=== PATIENT | male | born 1985 | race Caucasian/White ===

== ENCOUNTER 2022-11-30 12:30 | Emergency (ER) | payer OTHER, SELFPAY ==
[2022-11-30 12:31] VITALS: BP 137/87; PULSE 80; RESP 18; TEMP 37.1; O2SAT 99; BMI 20.5
--- NOTE | 2022-11-30 12:44 | VDLE_ITS ---
Reason For Study: swelling RIGHT CFV is compressible, spontaneous, phasic, competent and demonstrates normal augmentation. FV is compressible, spontaneous, phasic, competent and demonstrates normal augmentation. POP V is compressible, spontaneous, phasic, competent and demonstrates normal augmentation. T/P Trunk is compressible. PTV is compressible. Soleus V and Peroneal V are both dilated and noncompressible. GSV from the proximal thigh to the mid calf is dilated and noncompressible. Varicose veins from the proximal thigh to mid calf are dilated and noncompressible. Procedure This is a venous duplex using B-mode, color flow and spectral Doppler. Exam performed portable in ED. The exam was diagnostic. A preliminary report was called and/or faxed to Dr. Kim. VL/Venous Duplex US, Unilateral Interpretation Summary Deep venous thrombosis right soleus and peroneal veins. Superficial thrombophlebitis right great saphenous vein from the proximal thigh to the mid calf Superficial thrombophlebitis varicose veins of the proximal thigh to the mid ca lf Ordering Physician: Maximiliano Kim Performed By: Gabo Joyce RVT
--- NOTE | 2022-11-30 12:44 | ED.VIS.LOWEX ---
HPI History of Present Illness Chief Complaint: Lower Extremity Injury Detail of Chief Complaint: Left leg pain and varicosities Informant: patient Narrative Narrative: Patient presents the emergency department with concern for DVT. Patient was seen in urgent care and referred to the emergency department today. Patient noticed that 6 or 7 days ago that he developed some discomfort to some of the veins of his right leg from the knee to the thigh. Denies chest pain or shortness of breath. No history of PE or DVT. He denies recent travel or surgery. Patient is a smoker. PFSH PFSH Medical History no medical history Home Medications apixaban 5 mg tablet (Eliquis) 5 mg PO BID #74 tabs 11/30/22 [Rx Last Taken Unknown] Allergy/AdvReac Type Severity Reaction Status Date / Time No Known Allergies Allergy Verified 11/30/22 12:32 Surgical History no surgical history Social History Smoking Status: Current every day smoker tobacco type: cigarettes ROS ROS ED Review of Systems ROS Unobtainable: other Constitutional Constitutional ED: Reports lethargy; Denies chills, fever(s), sweats or weight loss Eyes Eyes: Denies blurry vision, change in vision or diplopia ENT ENT ED: Denies rhinorrhea or sore throat Cardiovascular Cardiovascular: Denies chest pain, orthopnea or racing heartbeat Respiratory/Chest Respiratory/Chest: Denies cough, dyspnea, dyspnea on exertion, orthopnea or sputum Gastrointestinal Gastrointestinal: Denies abdominal pain, diarrhea, nausea or vomiting Genitourinary Genitourinary ED: Denies dysuria, hematuria or urinary frequency Musculoskeletal Musculoskeletal: Reports other Details: Right leg pain and swelling ; Denies arthralgias, back pain, myalgias or neck pain Integumentary Denies abscess, Abrasions or rash Neurologic Neurologic: Denies headache(s) or weakness Psychiatric Psychiatric: Denies anxiety, depression or suicidal thoughts Endocrine Endocrinology: Denies polydipsia, polyphagia or polyuria Hematologic/Lymphatic Hematologic/Lymphatic: Denies easy bleeding, easy bruising or lymphadenopathy Allergic/Immunologic Allergic/Immunologic ED: Denies mouth swelling, tongue swelling or urticaria EXAM Physical Exam Const Vital Signs: 11/30/22 12:31 Temperature 98.8 F Temperature Source Temporal Pulse Rate 80 Respiratory Rate 18 Blood Pressure 137/87 H Blood Pressure Mean 103 Pulse Ox 99 Oxygen Delivery Method Room Air Positive well nourished and well developed General Appearance ED: well developed and NAD HEENT Reports TM's clear and moist mucous membranes normocephalic and atraumatic; Negative for trauma or tenderness Tympanic Membrane ED: Yes TM's clear Eyes PERRL and EOMs intact bilaterally General Eye ED: Negative for pale conjunctiva or scleral icterus Neck no lymphadenopathy, supple and no JVD General: Negative for tenderness Chest Wall inspection of chest normal and palpation of chest normal Chest: Negative for tenderness Resp normal respiratory effort and clear to auscultation bilaterally Effort and Inspection: Negative for respiratory distress or pain with movement Auscultation: Negative for rhonchi, wheezes or diminished lung sounds Cardio regular rate, regular rhythm, S1 normal heart sound, S2 normal heart sound and no murmurs Peripheral Pulses: pulses 2+ throughout GI normal to inspection, nondistended, normoactive bowel sounds, soft to palpation, non-tender, non-distended and no masses Back/Spine no CVA tenderness and no thoracic nor lumbar tenderness Extremity Extremity Narrative: Right leg-patient does have what I suspect is likely a superficial varicosity over the medial aspect of the right thigh extending from the popliteal region. There are some faint erythema. Vein is firm and slightly tender to palpation. No significant leg edema. Neurovascular intact distally. General Extremety ED: Negative for edema General Extremity: Negative for edema Neuro oriented x3, CN's II-XII intact bilaterally, no sensory deficits noted and gait normal Sensorium / Orientation: awake, alert, oriented to person, oriented to place and oriented to time Motor Exam: strength 5/5 throughout and strength abnormal Psych mental status grossly normal Skin no rashes or lesions noted and no wounds MDM MDM MDM Narrative Medical decision making narrative: Had a venous Doppler of the right lower extremity that showed DVT below the knee of the soleus vein and involving the peroneal vein. Patient also had superficial phlebitis of the greater saphenous vein. Case discussed with vascular surgeon Dr. Salmeron who recommended anticoagulation and follow-up with his office. Patient will be started on Eliquis. Patient advised to return for bleeding issues or any trauma to his head. Patient to return if chest pain or shortness of breath or condition should worsen anyway. Discharge Plan Triage Chief Complaint: Lower Extremity Injury ED Provider: Maximiliano Kim Dx/Rx/DC Orders Clinical Impression: Superficial thrombophlebitis, DVT of lower limb, acute Instructions: DVT Dc, ED Thrombophlebitis, Superficial Prescriptions: New Eliquis 5 mg tablet 5 mg PO BID Qty: 74 0RF Rx Instructions: 10 mg twice a day for the first week. Then 5 mg twice a day. Primary Care Provider: Care Physician,No Primary Referrals: Care Physician,No Primary [Primary Care Provider] - Disposition Disposition: Home, Self Care
--- NOTE | 2022-11-30 13:08 | CM.ED ---
Social Work Note Referral Source: Case Find Referral Reason: no PCP/ insurance SW met with patient and introduced herself and role as [facility] Elevator Troubleshooter. Patient was sitting up in hospital bed and agreeable to speak with SW. SW inquired about patient's interest in Medicaid application, patient was agreeable stating he needed assistance with getting insurance. SW reviewed how to apply as well as [employer] and [facility] resources. SW explained the case management director at [facility] could also assist patient with Medicaid application or additional resources. Patient was receptive towards resources and reports no other needs. SW remains available if needs arise. Zenaida Birch WIRE WORKER, CANDACE
[2022-11-30] MEDS: APIXABAN 5 MG TABLET 10 MG PO (13:45)
== END 2022-11-30 13:49 | disposition home or self-care (01) ==
PROVIDERS: Emergency Provider Emergency Medicine; Visit Provider Emergency Medicine
DX: I80.02 Phlebitis and thrombophlebitis of superficial vessels of left lower extremity (principal); F17.210 Nicotine dependence, cigarettes, uncomplicated
CPT/HCPCS: 93971; 99283

== ENCOUNTER → 2023-07-06 | Outpatient (CLI) | payer SELFPAY ==
[2023-07-06 12:35] LABS: Absolute Lymphocyte Count 0.97 X10^3/uL (0.83-4.51); Absolute Neutrophil Count 4.8 X10^3/uL (2.0-7.7); Basophil# 0.07 X10^3/uL; Basophil% 1.1 % (0-1); Eosinophil# 0.07 X10^3/uL; Eosinophils% 1.1 % (0-5); Hematocrit 48.3 % (40-54); Hemoglobin 16.3 g/dL (13.0-16.5); Lymphocyte # 0.97 X10^3/ul (0.83-4.51); Lymphocyte % 15.1 % (19-41); Mean Corp Hgb Conc 33.7 g/dL (32-36); Mean Corpuscular Hgb 31.8 pg (27.0-32.0); Mean Corpuscular Volume 94.2 fL (80-94); Mean Platelet Vol. 10.4 fl (6.2-12.0); Monocyte# 0.48 X10^3/uL; Monocyte% 7.5 % (0-10); NRBC Flagged by Analyzer 0 % (0-5); Neutrophil # 4.81 X10^3/uL (2.7-7.7); Neutrophil % 74.9 % (47-70); Platelet Count 176 K/mm3 (150-450); RBC Distribution Width CV 12.6 % (11.6-14.6); RBC Distribution Width SD 43.2 fl (35.1-43.9); Red Blood Count 5.13 M/mm3 (4.6-6.2); White Blood Count 6.4 K/mm3 (4.4-11.0)
[2023-07-06 12:55] LABS: AST(SGOT) 16 U/L (15-37); Alanine Aminotransfer ALT/SGPT 20 U/L (16-61); Albumin, Serum 3.7 g/dL (3.2-5.0); Alkaline Phosphatase 68 U/L (45-117); Anion Gap 8 (5-15); BUN 11 mg/dL (7-18); Calcium,Total 8.9 mg/dL (8.5-10.1); Chloride 104 mmol/L (98-107); Cholesterol 98 mg/dL (200); Creatinine, Serum 0.73 mg/dL (0.70-1.30); EST Glomerular Filtration Rate 128 mL/min (>60); Est Glom Filt Rate - Afr Amer 155 mL/min (>60); Globulin 3.8 g/dL (2.2-4.2); Glucose 95 mg/dL (74-106); High Density Lipoprotein 66 mg/dL; Potassium 4.4 mmol/L (3.5-5.1); Protein, Total 7.5 g/dL (6.4-8.2); Sodium Level 139 mmol/L (136-145); Triglycerides 42 mg/dL; Very Low Density Lipoprotein 8 mg/dL (5-40)
[2023-07-06 13:00] LABS: Partial Thromboplast Time 41.6 Seconds (24.1-36.2)
[2023-07-11 10:07] LABS: Factor VIII Activity 113 % (56-140); Protein C Antigen 66 % (60-150); Protein S, Free 105 % (61-136); Protein S, Total 69 % (60-150)
== END | disposition home or self-care (01) ==
LOC: BIMLAB 09:42
PROVIDERS: PCP Internal Medicine; Referring Provider Internal Medicine; Visit Provider Internal Medicine
DX: Z00.00 Encounter for general adult medical examination without abnormal findings (principal); I82.409 Acute embolism and thrombosis of unspecified deep veins of unspecified lower extremity; Z13.6 Encounter for screening for cardiovascular disorders
CPT/HCPCS: 36415; 80053; 80061; 85025; 85240; 85245; 85302; 85305; 85306; 85730

== ENCOUNTER → 2023-11-30 | Outpatient (CLI) | payer MEDICAID, SELFPAY ==
--- NOTE | 2023-11-30 14:33 | VDLE_ITS ---
Reason For Study: Right leg pain RIGHT LEFT GSV is normal. CFV is compressible, spontaneous, phasic, Acute deep vein thrombosis is noted in the competent, and demonstrates normal right CFV distal, FV, ProfundaV, PopV, T/P augmentation. trunk, and PTV. It is NONCOMPRESSIBLE. RT PerV is compressible. Procedure This is a venous duplex using B-mode, color flow and spectral Doppler. Exam performed in department. A preliminary report was called and/or faxed to Kendy DUFF. VL/Venous Duplex US, Unilateral Interpretation Summary Acute on chronic deep vein thrombosis is noted in the right common femoral vein , femoral vein, profunda vein, popliteal vein, tibioperoneal, posterior tibial vein Ordering Physician: Kendy Henning Referring Physician: Kimberlee Butler Performed By: Sarina Cohen RVT
== END | disposition home or self-care (01) ==
PROVIDERS: PCP Internal Medicine; Referring Provider Physician Assistant; Visit Provider Physician Assistant
DX: M79.604 Pain in right leg (principal)
CPT/HCPCS: 93971

== ENCOUNTER 2024-03-01 07:26 | Day surgery (SDC) | payer MEDICAID, SELFPAY ==
[2024-02-29 07:45] VITALS: BMI 19.6
[2024-03-01 07:47] LABS: Hemoglobin 16.1 g/dL (13.0-16.5); Mean Corp Hgb Conc 34.3 g/dL (32-36); Mean Corpuscular Hgb 31.3 pg (27.0-32.0); Mean Corpuscular Volume 91.4 fL (80-94); Mean Platelet Vol. 9.8 fl (6.2-12.0); Platelet Count 314 K/mm3 (150-450); RBC Distribution Width CV 12.9 % (11.6-14.6); RBC Distribution Width SD 43.8 fl (35.1-43.9); Red Blood Count 5.14 M/mm3 (4.6-6.2); White Blood Count 10.1 K/mm3 (4.4-11.0)
[2024-03-01 07:55] LABS: Anion Gap 4 (5-15); BUN 12 mg/dL (7-18); BUN/Creat Ratio 14.6 RATIO (10-20); Calcium,Total 9.2 mg/dL (8.5-10.1); Chloride 107 mmol/L (98-107); Creatinine, Serum 0.82 mg/dL (0.70-1.30); EST Glomerular Filtration Rate 112 mL/min (>60); Est Glom Filt Rate - Afr Amer 136 mL/min (>60); Estimated Creatinine Clearance 115.86 ml/min; Glucose 103 mg/dL (74-106); Potassium 3.9 mmol/L (3.5-5.1); Sodium Level 139 mmol/L (136-145)
--- NOTE | 2024-03-01 10:17 | OP.PCM_ITS ---
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 He has no significant personal or family history of known hypercoagulable conditions or early cancers. He presents now for venogram to assess for possible anatomic obstruction contributing to his thrombotic events. Description of procedure: Upon obtaining informed consent and verification correct patient procedure and site patient was taken to the [facility] where he was positioned prepped and draped in usual sterile fashion. Time was performed and conscious sedation administered Versed and fentanyl. Skin overlying the right common femoral vein was anesthetized 1% lidocaine the vessel accessed and ultrasound guidance with micropuncture needle wire. This was exchanged out for micropuncture sheath routine injection ilio caval venogram was performed which revealed satisfactory position with no extravasation dissection. Through the micropuncture sheath a Bentson wire is advanced and the micropuncture sheath exchanged for an 8 [place] sheath. Through the 8 [place] sheath intravascular sound probe was advanced and recorded pullback performed of the IVC, right common iliac vein, right external iliac vein. This revealed no significant compression or obstruction of the right iliac veins. Next skin overlying the left common femoral vein anesthetized 1% lidocaine the vessel accessed with micropuncture needle wire. This then exchanged for micropuncture sheath through which injection ilio caval venogram support which revealed satisfactory positioning with no extravasation dissection. This also revealed significantly widened mid common iliac vein with decreased opacification at the superior aspect of the vessel suggesting potential compression. Through the micropuncture sheath Bentson wire advanced the micropuncture sheath exchanged out for a 10 [place] sheath. Through the 10 [place] sheath the intravascular ultrasound probe was advanced and recorded pullback performed of the IVC, left common iliac vein, left external iliac vein. This revealed 58% compression of the proximal left common iliac vein up to the confluence. The patient had no prior left lower extremity thrombotic events or symptoms of venous congestion so it was not felt that this was appropriate for treatment. Wires and catheters then withdrawn, a silk suture pursestring placed at the access site and manual pressure held until hemostasis was obtained. Patient was then taken to recovery room for bedrest prior to discharge to home.
== END 2024-03-01 11:45 | disposition home or self-care (01) ==
PROVIDERS: PCP Internal Medicine; Referring Provider Surgery Trauma Surgery; Visit Provider Surgery Trauma Surgery
DX: I82.411 Acute embolism and thrombosis of right femoral vein (principal); Z79.82 Long term (current) use of aspirin; Z79.01 Long term (current) use of anticoagulants; Z86.718 Personal history of other venous thrombosis and embolism; F17.210 Nicotine dependence, cigarettes, uncomplicated; I87.1 Compression of vein
CPT/HCPCS: 36010; 36415; 37252; 37253; 75825; 76937; 80048; 85027; 99152; 99153; C1753; C1769; C1894; J7040; Q9967

== ENCOUNTER → 2024-07-02 | Outpatient (CLI) | payer MEDICAID, SELFPAY ==
[2024-07-02 10:46] LABS: Erythrocyte Sedimentation Rate 2 mm/hr (0-20)
[2024-07-03 15:09] LABS: ANTINUCLEAR ANTIBODIES DIRECT Negative (Negative)
[2024-07-10 17:07] LABS: Anti-Cardiolipin Ab, IgA, Qn < 9 APL U/mL (0-11); Anti-Cardiolipin Ab, IgG, Qn 12 GPL U/mL (0-14); Anti-Cardiolipin Ab, IgM, Qn < 9 MPL U/mL (0-12); Anti-Thrombin 3 AG, Immunol 70 % (72-124); Antithrombin 3 Function 113 % (75-135); Complement C3 104 mg/dL (82-167); Complement CH50 54 U/mL (>41); Dilute Prothrombin Time (dPT) 37.4 sec (0.0-47.6); Dilute Russell Viper Venom 33.5 sec (0.0-47.0); Hexagonal Phase Phospholipid 2 16 sec (0-11); Interpretation Comment: (.); PTT-LA 46.5 sec (0.0-43.5); PTT-LA Mix 45.1 sec (0.0-40.5); Protein C, Functional 100 % (73-180); Protein S, Free 91 % (61-136); Protein S, Funtional 48 % (63-140); Protein S, Total 60 % (60-150); Thrombin Time 16.1 sec (0.0-23.0); dPT Confirm Ratio 1.19 Ratio (0.00-1.34)
== END | disposition home or self-care (01) ==
LOC: LAB 10:16
PROVIDERS: PCP Internal Medicine; Referring Provider Physician Assistant; Visit Provider Physician Assistant
DX: I82.411 Acute embolism and thrombosis of right femoral vein (principal)
CPT/HCPCS: 36415; 81240; 81241; 85300; 85301; 85303; 85305; 85306; 85652; 86038; 86147; 86160; 86162; 86225; 86235

== ENCOUNTER → 2024-07-30 | Outpatient (CLI) | payer MEDICAID, SELFPAY ==
--- NOTE | 2024-07-30 09:44 | VDLE_ITS ---
Reason For Study: HX DVT RIGHT LEFT CFV is compressible, spontaneous, phasic, FV is compressible, spontaneous, phasic, competent and demonstrates normal competent and demonstrates normal augmentation. augmentation. FV is PARTIALLY COMPRESSIBLE with intralumnal echoes noted. Finding consistent with CHRONIC DVT. Reflux greater than 1.0 second is noted with augmentation in both FV duplicators. POP V is compressible, spontaneous, phasic and demonstrates reflux greater than 1.0 second with augmentation. T/P Trunk is PARTIALLY COMPRESSIBLE with intralumnal echoes noted. Finding consistent with CHRONIC DVT. PTV is compressible. RT PerV is compressible. SFJ is INCOMPETENT and measures 0.74 cm. GSV proximal thigh measures 0.33 x 0.37 cm. GSV at knee measures 0.29 x 0.30 cm. GSV INCOMPETENT throughout for greater than 0.5 seconds. SSV at junction is competent and measures 0.31 x 0.34 cm. SSV mid calf is competent and measures 0.31 cm. ASV mid thigh is INCOMPETENT for greater than 0.5 seconds and measures 0.41 x 0.47 cm. Procedure This is a venous duplex using B-mode, color flow and spectral Doppler. Exam performed in department. The exam was diagnostic. VL/Venous Duplex US, Unilateral Interpretation Summary Chronic deep vein thrombosis is noted in the right femoral vein, tibioperoneal trunk vein. Positive for reflux in duplicate femoral vein, saphenofemoral junction, great s aphenous vein, accessory saphenous vein in thigh. Ordering Physician: Kendy Henning Referring Physician: Kimberlee Butler Performed By: Ghassan Gonzales RVT
== END | disposition home or self-care (01) ==
LOC: CVS 09:40
PROVIDERS: PCP Internal Medicine; Referring Provider Physician Assistant; Visit Provider Physician Assistant
DX: I87.2 Venous insufficiency (chronic) (peripheral) (principal)
CPT/HCPCS: 93971

== ENCOUNTER → 2024-10-22 | Outpatient (CLI) | payer MEDICAID, SELFPAY ==
[2024-10-23 19:07] LABS: Dilute Russell Viper Venom 49.8 sec (0.0-47.0); Dilute Russell Viper Venom Mix 40.3 sec (0.0-40.4); Hexagonal Phase Phospholipid 2 30 sec (0-11); Interpretation Comment: (.); PTT-LA 65.9 sec (0.0-43.5); PTT-LA Mix 60.8 sec (0.0-40.5); Protein S, Free 94 % (61-136); Protein S, Funtional 80 % (63-140); Protein S, Total 68 % (60-150); Thrombin Time 15.6 sec (0.0-23.0); dPT Confirm Ratio 1.44 Ratio (0.00-1.34)
== END | disposition home or self-care (01) ==
LOC: LAB 09:42
PROVIDERS: PCP Internal Medicine; Referring Provider Physician Assistant; Visit Provider Physician Assistant
DX: I82.411 Acute embolism and thrombosis of right femoral vein (principal)
CPT/HCPCS: 36415; 85305; 85306

== ENCOUNTER → 2025-04-23 | Outpatient (CLI) | payer MEDICAID, SELFPAY ==
--- NOTE | 2025-04-23 10:57 | VDLE_ITS ---
Reason For Study Reason For Study: HX RLE DVT RIGHT LEFT GSV is PARTIALLY COMPRESSIBLE at mid thigh but GSV is normal. appears compressible throughout the remainder of the CFV is compressible, spontaneous, phasic, competent, vessel. and demonstrates normal augmentation. FV is compressible, spontaneous, phasic, competent CFV is compressible, phasic, and INCOMPETENT for and demonstrates normal augmentation. greater than 1.0 second. POP V is compressible, spontaneous, phasic, competent and demonstrates normal augmentation. FV is PARTIALLY COMPRESSIBLE with mixed intraluminal T/P Trunk is compressible. echoes and continuous flow. Chronic DVT at prox and PTV is compressible. mid - Possible Acute on Chronic DVT at distal vessel. LT PerV is compressible. Deep Femoral Vein is Partially compressible with web like intraluminal echoes POP V Acute deep vein thrombosis is noted. The vessel appears dilated and NONCOMPRESSIBLE with diminished continuous flow. T/P Trunk is Partially compressible with web like intraluminal echoes Gastrocnemius Vein is Partially compressible with web like intraluminal echoes PTV Acute deep vein thrombosis is noted. The vessel appears dilated and NONCOMPRESSIBLE at proximal portion Leonardo Vein is compressible. Procedure This is a venous duplex using B-mode, color flow and spectral Doppler. Exam performed in department. The exam was diagnostic. A preliminary report was called and/or faxed to Katty @ Dr. Toth's office. VL/Venous Duplex US - Taco Extrem Interpretation Summary Acute deep vein thrombosis noted in the right femoral vein, popliteal vein, pos terior tibial vein. Chronic deep vein thrombosis noted in the right femoral vein, profunda femoral vein, gastrocnemius vein. Chronic superficial vein thrombosis noted in the right great saphenous vein. Deep veins of the left lower extremity are patent and compressible segmentally. There is no evidence of left lower extremity deep vein thrombosis. The left great saphenous vein appears patent an d compressible segmentally. Ordering Physician: Derek Toth Referring Physician: [place], Kimberlee Performed By: Ghassan Gonzales RVT
--- OUTSIDE RECORDS SUMMARY | 2025-04-23 19:59 | XMS RPT_ITS | CCD ---
Author Organization [facility] CliniSyut Care Team Providers Care Job Hand Name Role Phone Care Physician, No Primary Primary Care Provider Unavailable Care Physician, No Primary Referring Provider Un available Dr. Cliff Butler Attending Provider [phone] CARLEE ROBERTS Attending Unavailable CLIFF BUTLER G Primary Care Unavailable Dr. Cliff Butler Primary Care Provider Dr. Cliff Butler Referring Provider [phone] OMEGA Henning Attending Provider [phone] Ariel Salmeron Attending Provider [phone] Cliff Butler MD Primary Care Provider [phone] Kendy Kirkpatrick Attending Provider [phone] Kendy Kirkpatrick Referring Provider [phone] Ariel Salmeron MD Attending Provider Marks, Cliff Primary Care Unavailable Henning, Kendy Referring Unavailable Henning, Kendy Attending Unavailable Henning, Kendy Attending Unavailable Henning, Kendy Referring Unavailable Luke, Cliff Primary Care Unavailable Marks, Cliff Primary Care Unavailable Prah, Derek Attending Unavailable Prah, Derek Referring Unavailable Marks, Cliff Primary Care Unavailable Prah, Derek Attending Unavailable Henning, Kendy Referring Unavailable Luke, Cliff Primary Care Unavailable Henning, Kendy Referring Unavailable Ariel Salmeron Attending Unavailable Luke, Cliff Referring Unavailable Marks, Cliff Primary Care Unavailable Prah, Derek Attending Unavailable Henning, Kendy Attending Unavailable Luke, Cliff Referring Unavailable Marks, Cliff Primary Care Unavailable Luke, Cliff Primary Care Unavailable Henning, Kendy Referring Unavailable Henning, Kendy Attending Unavailable Medications Current Medications Medication Drug Class(es) Dates Sig (Normalized) Sig (Original) aspirin 81 mg delayed release oral tablet (2 sources) Platelet Aggregation Inhibitor, Nonsteroidal Anti-inflammatory Drug Start: 11-30-2023 take 1 tablet by mouth once daily Aspirin 81 mg tablet,delayed release (DR/EC) Active 81 mg PO DAILY November 30, 2023 12:00am rivaroxaban 10 mg oral tablet (3 sources) Factor Xa Inhibitor Start: 07-17-2024 take 1 tablet by mouth once Rivaroxaban (Xarelto) 10 mg tablet Active 10 mg PO ONCE July 17, 2024 1:00am Start: 11-30-2023 End: 07-17-2024 take 1 tablet by mouth once daily at dinner Rivaroxaban (Xarelto) 20 mg tablet Discontinued 20 mg PO DAILY November 30, 2023 12:00am July 17, 2024 5:27pm must administer with evening meal Completed/Discontinued Medications Medication Drug Class(es) Dates Sig (Normalized) Sig (Original) apixaban 5 mg oral tablet (4 sources) Factor Xa Inhibitor Start: 11-30-2022 End: 07-06-2023 take 2 tablets by mouth twice daily, then take 1 tablet by mouth twice daily Apixaban (Eliquis) 5 mg tablet Discontinued 5 mg PO TWICE A DAY November 30, 2022 12:00am July 06, 2023 9:47am 10 mg twice a day for the first week. Then 5 mg twice a day. clopidogrel 75 mg oral tablet (1 source) P2Y12 Platelet Inhibitor Start: 06-27-2024 End: 07-17-2024 take 1 tablet by mouth once daily Clopidogrel (Plavix) 75 mg tablet Discontinued 75 mg PO DAILY June 27, 2024 1:00am July 17, 2024 5:29pm To start after discontinuing Xarelto Problems Active Problems Problem Classification Problem Date Documented Date Episodic/Chronic Administrative/social admission (1 source) Persons encountering health services in other specified circumstances; Translations: [Other reasons for seeking consultation] 07-06-2023 Episodic Coagulation and hemorrhagic disorders (1 source) Other primary thrombophilia; 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-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 Immunizations and screening for infectious disease (1 source) Raised antibody titer; Translations: [Raised antibody titer] Onset: 03-25-2025 Episodic Other connective tissue disease (2 sources) Pain in right lower limb; Translations: [Pain in right leg] 11-30-2023 Episodic Other diseases of veins and lymphatics (2 sources) Vascular insufficiency; Translations: [Venous insufficiency (chronic) (peripheral)] 11-30-2023 Episodic Other screening for suspected conditions (not mental disorders or infectious disease) (1 source) Encounter for screening for cardiovascular disorders; Translations: [Screening for other and unspecified cardiovascular conditions] 07-06-2023 Episodic Substance-related disorders (1 source) Nicotine dependence, cigarettes, uncomplicated; Translations: [Tobacco use disorder] 07-06-2023 Chronic Syncope (1 source) Syncope and collapse; Translations: [Near syncope] Onset: 07-24-2023 Episodic Past or Other Problems Problem Classification Problem Date Documented Da te Episodic/Chronic Other diseases of veins and lymphatics (1 source) Venous insufficiency (chronic) (peripheral); Translations: [Venous insufficiency (chronic) (peripheral)] Onset: Episodic Phlebitis; thrombophlebitis and thromboembolism (14 sources) Superficial thrombophlebitis; Translations: [Phlebitis and thrombophlebitis of unspecified site] Onset: 5 11-30-2022 Episodic Results Test Name Value Interpretation Reference Range Facility CBC W/Diff, Automatedon Absolute Lymph 1.10 X10 3/uL Normal 0.83-4.51 [facility] Comment on above: Performed By: #### L 300.4310, L300.3900, L100.0100, L101.9900, L504.2610 ####[facility] [address] [place], [address] Absolute Neut 6.5 X10 3/uL Normal 2.0-7.7 [facility] Comment on above: Performed By: #### L 300.4310, L300.3900, L100.0100, L101.9900, L504.2610 ####[facility] [address] [place], [address] Basophils/100 WBC (Bld) 1.1 % High 0-1 [facility] Comment on above: Performed By: #### L 300.4310, L300.3900, L100.0100, L101.9900, L504.2610 ####[facility] [address] [place], [address] Eosinophils/100 WBC (Bld) 0.9 % Normal 0-5 [facility] Comment on above: Performed By: #### L 300.4310, L300.3900, L100.0100, L101.9900, L504.2610 ####[facility] [address] [place], [address] Erythrocyte distribution width (RBC) [Ratio] 13.2 % Normal 11.6-14.6 [facility] Comment on above: Performed By: #### L 300.4310, L300.3900, L100.0100, L101.9900, L504.2610 ####[facility] [address] [place], [address] Hematocrit (Bld) [Volume fraction] 46.6 % Normal 40-54 [facility] Comment on above: Performed By: #### L 300.4310, L300.3900, L100.0100, L101.9900, L504.2610 ####[facility] [address] [place], [address] Hemoglobin (Bld) [Mass/Vol] 15.9 g/dL Normal 13.0-16.5 [facility] Comment on above: Performed By: #### L 300.4310, L300.3900, L100.0100, L101.9900, L504.2610 ####[facility] [address] [place], [address] IG% 0.500 Normal 0.0-0.9 [facility] Comment on above: Result Comment: IG% - Immature Granulocytes (promyelocytes, myelocytes and metamyelocytes) > 1% indicates that a LEFT SHIFT is Present. Performed By: #### L 300.4310, L300.3900, L100.0100, L101.9900, L504.2610 ####[facility] [address] [place], [address] Lymphocytes/100 WBC (Bld) 12.9 % Low 19-41 [facility] Comment on above: Performed By: #### L 300.4310, L300.3900, L100.0100, L101.9900, L504.2610 ####[facility] [address] [place], [address] MCH (RBC) [Entitic mass] 32.0 pg Normal 27.0-32.0 [facility] Comment on above: Performed By: #### L 300.4310, L300.3900, L100.0100, L101.9900, L504.2610 ####[facility] [address] [place], [address] MCHC (RBC) [Mass/Vol] 34.1 g/dL Normal 32-36 [facility] Comment on above: Performed By: #### L 300.4310, L300.3900, L100.0100, L101.9900, L504.2610 ####[facility] [address] [place], [address] MCV (RBC) [Entitic vol] 93.8 fL Normal 80-94 [facility] Comment on above: Performed By: #### L 300.4310, L300.3900, L100.0100, L101.9900, L504.2610 ####[facility] [address] [place], [address] Monocytes/100 WBC (Bld) 8.8 % Normal 0-10 [facility] Comment on above: Performed By: #### L 300.4310, L300.3900, L100.0100, L101.9900, L504.2610 ####[facility] [address] [place], [address] Neutrophils/100 WBC (Bld) 75.8 % High 47-70 [facility] Comment on above: Performed By: #### L 300.4310, L300.3900, L100.0100, L101.9900, L504.2610 ####[facility] [address] [place], [address] Nucleated RBC (Bld) [#/Vol] 0 10*3/uL Normal 0-5 [facility] Comment on above: Performed By: #### L 300.4310, L300.3900, L100.0100, L101.9900, L504.2610 ####[facility] [address] [place], [address] Platelet mean volume (Bld) [Entitic vol] 10.5 fL Normal 6.2-12.0 [facility] Comment on above: Performed By: #### L 300.4310, L300.3900, L100.0100, L101.9900, L504.2610 ####[facility] [address] [place], [address] Platelets (Bld) [#/Vol] 307 10*3/uL Normal 150-450 [facility] Comment on above: Performed By: #### L 300.4310, L300.3900, L100.0100, L101.9900, L504.2610 ####[facility] [address] [place], [address] RBC (Bld) [#/Vol] 4.97 10*6/uL Normal 4.6-6.[address] [facility] Comment on above: Performed By: #### L 300.4310, L300.3900, L100.0100, L101.9900, L504.2610 ####[facility] [address] [place], [address] RDW SD 44.9 fl High 35.1-43.9 [facility] Comment on above: Performed By: #### L 300.4310, L300.3900, L100.0100, L101.9900, L504.2610 ####[facility] [address] [place], [address] WBC (Bld) [#/Vol] 8.6 10*3/uL Normal 4.4-11.0 [facility] Comment on above: Performed By: #### L 300.4310, L300.3900, L100.0100, L101.9900, L504.2610 ####[facility] [address] [place], [address] Comprehensive Metabolic Prof [facility] 03-26-2025 Albumin [Mass/Vol] 4.3 g/dL Normal 3.5-5.0 [facility] Comment on above: Performed By: #### L 503.0106, L500.4050 #### [facility] [address] [place], [address] Albumin/Globulin [Mass ratio] 1.8 {ratio} Normal 0.9-2.4 [facility] Comment on above: Performed By: #### L 503.0106, L500.4050 #### [facility] [address] [place], [address] ALK PHOS 55 U/L Normal 40-129 [facility] Comment on above: Performed By: #### L 503.0106, L500.4050 #### [facility] [address] [place], [address] ALT [Catalytic activity/Vol] 34 U/L Normal <=46 [facility] Comment on above: Performed By: #### L 503.0106, L500.4050 #### [facility] [address] [place], [address] AST [Catalytic activity/Vol] 44 U/L High <=37 [facility] Comment on above: Performed By: #### L 503.0106, L500.4050 #### [facility] [address] [place], [address] Bilirubin [Mass/Vol] 0.29 mg/dL Normal 0.00-1.30 [facility] Comment on above: Performed By: #### L 503.0106, L500.4050 #### [facility] [address] [place], [address] BUN/CRE 28.3 RATIO High 10-20 [facility] Comment on above: Performed By: #### L 503.0106, L500.4050 #### [facility] [address] [place], [address] Calcium [Mass/Vol] 9.1 mg/dL Normal 7.6-11.0 [facility] Comment on above: Performed By: #### L 503.0106, L500.4050 #### [facility] [address] [place], [address] Chloride [Moles/Vol] 104 mmol/L Normal 98-108 [facility] Comment on above: Performed By: #### L 503.0106, L500.4050 #### [facility] [address] [place], [address] CO2 [Moles/Vol] 23.6 mmol/L Normal 21.0-32.0 [facility] Comment on above: Performed By: #### L 503.0106, L500.4050 #### [facility] [address] [place], [address] Creatinine [Mass/Vol] 0.80 mg/dL Normal 0.70-1.20 [facility] Comment on above: Performed By: #### L 503.0106, L500.4050 #### [facility] [address] [place], [address] ECRCL 116.19 ml/min Normal 50-250 [facility] Comment on above: Performed By: #### L 503.0106, L500.4050 #### [facility] [address] [place], [address] GAP 10 Normal 5-15 [facility] Comment on above: Performed By: #### L 503.0106, L500.4050 #### [facility] [address] [place], [address] GFR/1.73 sq M.predicted among non-blacks MDRD (S/P/Bld) [Vol rate/Area] 117 mL/min/{1.73_m2} Normal >60 [facility] Comment on above: Result Comment: mL/m in/1.73m2 CKD-EPI Creatinine Equation (2020) Performed By: #### L 503.0106, L500.4050 #### [facility] [address] [place], [address] Globulin (S) [Mass/Vol] 2.4 g/dL Normal 2.2-4.2 [facility] Comment on above: Performed By: #### L 503.0106, L500.4050 #### [facility] [address] [place], [address] Glucose [Mass/Vol] 102 mg/dL High 70-99 [facility] Comment on above: Performed By: #### L 503.0106, L500.4050 #### [facility] [address] [place], [address] Potassium [Moles/Vol] 4.1 mmol/L Normal 3.3-5.1 [facility] Comment on above: Performed By: #### L 503.0106, L500.4050 #### [facility] [address] [place], [address] Sodium [Moles/Vol] 137 mmol/L Normal 133-145 [facility] Comment on above: Performed By: #### L 503.0106, L500.4050 #### [facility] [address] [place], [address] T PROT 6.7 g/dL Normal 5.9-8.4 [facility] Comment on above: Performed By: #### L 503.0106, L500.4050 #### [facility] [address] [place], [address] Urea nitrogen [Mass/Vol] 23 mg/dL High 4-19 [facility] Comment on above: Performed By: #### L 503.0106, L500.4050 #### [facility] [address] [place], [address] Erythrocyte Sed Rateon 03-26 SED RATE 7 mm/hr Normal 0-20 [facility] Comment on above: Performed By: #### L 300.4310, L300.3900, L100.0100, L101.9900, L504.2610 ####[facility] [address] [place], [address] LDHon 03-26-2025 LDH 183 U/L Normal 87-241 [facility] Comment on above: Order Comment: 1 Performed By: #### L 300.4310, L300.3900, L100.0100, L101.9900, L504.2610 ####[facility] [address] [place], [address] Partial Thromboplast Timeon 03-26-2025 aPTT Coag (Bld) [Time] 39.4 s High 24.1-36.2 [facility] Comment on above: Performed By: #### L 300.4310, L300.3900, L100.0100, L101.9900, L504.2610 ####[facility] [address] [place], [address] Prothrombin Time w/INRon INR Coag (PPP) [Relative time] 0.9 {INR} Normal [facility] Comment on above: Performed By: #### L 300.4310, L300.3900, L100.0100, L101.9900, L504.2610 ####[facility] [address] [place], [address] PT Coag (PPP) [Time] 12.7 s Normal 11.7-14.9 [facility] Comment on above: Performed By: #### L 300.4310, L300.3900, L100.0100, L101.9900, L504.2610 ####[facility] [address] [place], [address] Vitamin B12on 03-26-2025 Cobalamin (Vitamin B12) [Mass/Vol] 369 pg/mL Normal 180-914 [facility] Comment on above: Performed By: #### L 503.0106, L500.4050 #### [facility] [address] [place], [address] Oncology Visit Reporton Oncology Visit Report [facility] [place] [facility] [address] [place] [address] OFFICE VISIT Date of Service: 12/24/24 0857 MR#: [id number] Acct: [id number] Name: LAURO ZARAGOZA Rep #: [id number] : 1985 From: Derek Toth MD Age/Sex: 39/M Location: [facility] Status: Signed HPI Subjective Date of Service 12/24/24 Chief Complaint F/u for Lupus anticoagulant. History of Present Illness 39y.o.man was diagnosed with Distal DVT on 11/30/2022 which was unprovoked. He was anticoagulated with Eliquis for some 6 months. He developed right leg swelling and pain in November 2023, Doppler showed acute on chronic DVT in the right common femoral vein, femoral vein profunda vein popliteal vein, tibial peroneal vein and posterior tibial vein. He was started on Xarelto. 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 He is currently on prophylactic dose of Xarelto 10 mg daily. He had another thrombotic risk profile which was abnormal and referred for further evaluation. He had bloow work and comes for follow up. Feels well. 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 pets and animals: Yes (1) pets and animals: dog(s) history of recent travel: No sexually active: Yes Smoking Status: Former smoker Electronic Cigarette Use: not used how long ago did patient quit smokin months quit status: considering quitting alcohol intake: current alcohol intake frequency: a few times a week Alcohol type: beer substance use type: marijuana caffeine: Yes (1-2) Type: coffee frequency: 1-2 times per week seatbelt use: always do you feel safe at home: Yes Intake Vital Signs 12/10/24 15:14 12/24/24 09:01 Height 6 ft 6 ft Weight: 64.977 kg BMI 19.4 BP 106/69 Blood Pressure Location Lt brachial Position Sitting Respiration 18 Pulse 78 Pulse Source Monitor Temp 98.4 F Temperature Source Temporal Artery Pulse Oximetry (%) 98 Oxygen Delivery Method room air Intake Is patient in pain?: No Allergies No Known Allergies Allergy (Verified 12/24/24 09:01) Medications ???Medication ???Instructions ???Recorded ???Confirmed ???Type aspirin 81 mg tablet,delayed 81 mg PO DAILY 11/30/23 12/24/24 H istory release rivaroxaban 10 mg tablet (Xarelto) 10 mg PO QDAY #30 tabs 11/13/24 12/24/24 Rx Central Venous Access Central Venous Access: No Laboratory Tests 07/02/24 10/22/24 12/17/24 10:19 09:51 09:10 PT 12.2 PT Diluted 48.0 H 40.9 PT Ratio 1.12 APTT 37.8 H Thrombin Time 15.6 16.6 D-Dimer Quant (PE/DVT) < 0.27 L Lupus Anticoag aPTT 65.9 H 63.0 H LA PTT Mix/Correction 60.8 H 46.6 H Dil Bc Viper Venom 49.8 H 43.9 dRVVT Mixing Study 40.3 Hexagonal Phospholipid 30 H 20 H Functional Protein S 80 Free Protein S 94 Total Protein S 68 Factor V Leiden Mutat Comment PAYAM Screen Positive H Anti-Cardiolipin IgG Ab 10 Anti-Cardiolipin IgA Ab < 9 Anti-Cardiolipin IgM Ab < 9 Factor II DNA Analysis Comment Exam Physical Exam Const alert, oriented x3, no apparent distress and average body habitus Coding Level of Care Code Off vis,est,level 3 Exam Problem Focused Diagnoses Lupus anticoagulant positive R76.0 Acute deep vein thrombosis (DVT) of femoral vein of right lower extremity I82.411 DVT location: lower extremity Affected thrombotic vein of extremity: femoral Chronicity: acute Laterality: right PAYAM positive R76.8 Assessment and Plan Assessment and Plan (1) Lupus anticoagulant positive: Status: Chronic Comment: Discussed evaluation of Lupus anti-coagulant evaluation, repeat testing which is trending downwards. Still needs testing again in 3 months Plan: To repeat comprehensive Lupus anticoagulant test in 3 months. (2) Deep vein thrombosis (DVT): Status: Chronic Qualifiers: DVT location: lower extremity Affected thrombotic vein of extremity: femoral Chronicity: acute Laterality: right Qualified Code(s): I82.411 - Acute embolism and thrombosis of right femoral vein Comment: D-dimers was normal on 12/17/2024. Plan: To continue Prophylactic Xarelto 10mg daily till re-testing in about 3 months. Repeat Doppler studies of Lower extremities. (3) PAYAM positive: Status: Acute Comment: No symptoms of Connective tissue disease (more content not included)... Normal [facility] Anticardiolipin IgA,G,Mon ANTICARDIO IgA < 9 Normal 0-11 [facility] Comment on above: Result Comment: Nega tive: <12 Indeterminate: 12 - 20 Low-Med Positive: >20 - 80 High Positive: >80 Performed at: - [facility] [id number] Electroencephalogram Technologist: Mita Mcginnis MD, Phone: [phone] Performed at: - [facility] [id number] Electroencephalogram Technologist: Korey Devine PhD, Phone: [phone] Performed By: #### L 4500.0100, L3100.5475, L3100.8408 ####[facility] [address] [place], [place], [id number] ANTICARDIO IgG 10 GPL U/mL Normal 0-14 [facility] Comment on above: Result Comment: Nega tive: <15 Indeterminate: 15 - 20 Low-Med Positive: >20 - 80 High Positive: >80 Performed By: #### L 4500.0100, L3100.5475, L3100.8408 ####[facility] [address] [place], [address] Anticardio.IgM < 9 Normal 0-12 [facility] Comment on above: Result Comment: Nega tive: <13 Indeterminate: 13 - 20 Low-Med Positive: >20 - 80 High Positive: >80 Performed By: #### L 4500.0100, L3100.5475, L3100.8408 ####[facility] [address] [place], [place], [phone] [id number] 12-19-2024 [facility] Normal . [facility] Comment on above: Order Comment: [id number] SERUM . RT Result Comment: Test Ordered: [id number] Beta-2 Glycoprotein I Ab,G,A,M Beta-2 Glycoprotein I Ab, IgG 11 CB Units of Measure: GPI IgG units Reference Range: 0-20 The reference interval reflects a 3SD or 99th percentile interval, which is thought to represent a potentially clinically significant result in accordance with the International Consensus Statement on the classification criteria for definitive antiphospholipid syndrome (APS). J Thromb Haem 2006;4:295-306. Beta-2 Glycoprotein I Ab, IgA <9 CB Units of Measure: GPI IgA units Reference Range: 0-25 The reference interval reflects a 3SD or 99th percentile interval, which is thought to represent a potentially clinically significant result in accordance with the International Consensus Statement on the classification criteria for definitive antiphospholipid syndrome (APS). J Thromb Haem 2006;4:295-306. Beta-2 Glycoprotein I Ab, IgM <9 CB Units of Measure: GPI IgM units Reference Range: 0-32 The reference interval reflects a 3SD or 99th percentile interval, which is thought to represent a potentially clinically significant result in accordance with the International Consensus Statement on the classification criteria for definitive antiphospholipid syndrome (APS). J Thromb Haem 2006;4:295-306. Performed at: [facility] [address] [id number] Electroencephalogram Technologist: Korey Devine PhD, Phone: [phone] Performed By: #### L 3410.9992 #### [facility] [address] [place], [address] Lupus Anticoagulant Compon 0 12-19-2024 aPTT Coag (Bld) [Time] 63.0 s High 0.0-43.5 [facility] Comment on above: Performed By: #### L 4500.0100, L3100.5475, L3100.8408 ####[facility] [address] [place], [address] aPTT Coag (Bld) [Time] 46.6 s High 0.0-40.5 [facility] Comment on above: Performed By: #### L 4500.0100, L3100.5475, L3100.8408 ####[facility] [address] [place], [address] DILUTE PT (dPT) 40.9 sec Normal 0.0-47.6 [facility] Comment on above: Performed By: #### L 4500.0100, L3100.5475, L3100.8408 ####[facility] [address] [place], [address] dPT Conf. Ratio 1.12 Ratio Normal 0.00-1.34 [facility] Comment on above: Performed By: #### L 4500.0100, L3100.5475, L3100.8408 ####[facility] [address] [place], [address] DRVVT 43.9 sec Normal 0.0-47.0 [facility] Comment on above: Performed By: #### L 4500.0100, L3100.5475, L3100.8408 ####[facility] [address] [place], [address] HEX PHAS PHOSPH 20 sec Abnormal 0-11 [facility] Comment on above: Performed By: #### L 4500.0100, L3100.5475, L3100.8408 ####[facility] [address] [place], [address] Interpretation Comment: Normal . [facility] Comment on above: Result Comment: Resu lts are consistent with the presence of a lupus anticoagulant. As only persistent lupus anticoagulant (LA) positivity meets laboratory diagnostic criteria for antiphospholipid syndrome, repeat testing in 12 or more weeks is recommended, ideally in the absence of anticoagulant therapy. Important Note: The results of LA testing are not valid for patients receiving heparin, direct Xa inhibitor (e.g., rivaroxaban, apixaban) or direct thrombin inhibitor (e.g., dabigatran) therapy. These drugs may cause false positive LA results but will not interfere with anticardiolipin and beta-2 glycoprotein 1 antibody testing. Performed By: #### L 4500.0100, L3100.5475, L3100.8408 ####[facility] [address] [place], [address] THROMBIN TIME 16.6 sec Normal 0.0-23.0 [facility] Comment on above: Performed By: #### L 4500.0100, L3100.5475, L3100.8408 ####[facility] [address] [place], [address] ANTINUCLEAR ANTIBODIES DIREC Ton 12-18-2024 PAYAM,DIRECT Positive Abnormal Negative [facility] Comment on above: Result Comment: Perf ormed at: [facility] [address] [id number] Electroencephalogram Technologist: Korey Devine PhD, Phone: [phone] Performed By: #### L 4500.0100, L3100.5475, L3100.8408 ####[facility] [address] [place], [address] D-Dimer Quantitative (DVT/PE )on 12-17-2024 D-DIMER QUANT < 0.27 Low 0.27-0.49 [facility] Comment on above: Result Comment: NORM AL D-Dimer level (<0.50) indicates no DVT or PE. Performed By: #### L 300.4310, L300.3900, L300.8000 ####[facility] [address] [place], [address] Partial Thromboplast Timeon 12-17-2024 aPTT Coag (Bld) [Time] 37.8 s High 24.1-36.2 [facility] Comment on above: Performed By: #### L 300.4310, L300.3900, L300.8000 ####[facility] [address] [place], [address] Prothrombin Time w/INRon INR Coag (PPP) [Relative time] 0.9 {INR} Normal [facility] Comment on above: Performed By: #### L 300.4310, L300.3900, L300.8000 ####[facility] [address] [place], [address] PT Coag (PPP) [Time] 12.2 s Normal 11.7-14.9 [facility] Comment on above: Performed By: #### L 300.4310, L300.3900, L300.8000 ####[facility] [address] [place], [address] Oncology Visit Reporton 11-21 Oncology Visit Report [facility] [address] [place] [address] OFFICE VISIT Date of Service: 12/10/24 1511 MR#: [id number] Acct: [id number] Name: LAURO ZARAGOZA Yvonne Rep #: [id number] : 1985 From: Derek Toth MD Age/Sex: 39/M Location: [facility] Status: Signed HPI Subjective Date of Service 12/10/24 Chief Complaint Referred for Lupus anticoagulant. History of Present Illness 39y.o.man was diagnosed with Distal DVT on 11/30/2022 which was unprovoked. He was anticoagulated with Eliquis for some 6 months. He developed right leg swelling and pain in November 2023, Doppler showed acute on chronic DVT in the right common femoral vein, femoral vein profunda vein popliteal vein, tibial peroneal vein and posterior tibial vein. He was started on Xarelto. 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 He is currently on prophylactic dose of Xarelto 10 mg daily. He had another thrombotic risk profile which was abnormal and referred for further evaluation. 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374 kg BMI 19.5 BP 114/70 Blood Pressure Location Lt brachial Position Sitting Respiration 18 Pulse 98 Pulse Source Monitor Temp 98.9 F Temperature Source Temporal Artery Pulse Oximetry (%) 98 Oxygen Delivery Method room air Intake Is patient in pain?: No Allergies No Known Allergies Allergy (Verified 12/10/24 15:11) Medications ???Medication ???Instructions ???Recorded ???Confirmed ???Type aspirin 81 mg tablet,delayed 81 mg PO DAILY 11/30/23 12/10/24 H istory release rivaroxaban 10 mg tablet (Xarelto) 10 mg PO QDAY #30 tabs 11/13/24 12/10/24 Rx Central Venous Access Central Venous Access: No Laboratory Tests 07/02/24 10/22/24 10:19 09:51 PT Diluted 48.0 H Thrombin Time 15.6 Lupus Anticoag aPTT 65.9 H LA PTT Mix/Correction 60.8 H Dil Bc Viper Venom 49.8 H dRVVT Mixing Study 40.3 Hexagonal Phospholipid 30 H Functional Protein S 80 Free Protein S 94 Total Protein S 68 Factor V Leiden Mutat Comment Factor II DNA Analysis Comment Exam Physical Exam Const alert, oriented x3 and no apparent distress HEENT normocephalic, external ears normal and external nose normal Eyes PERRL, EOMs intact bilaterally, conjunctivae normal and no scleral icterus Neck supple Lymph Lymphatic: no lymphadenopathy noted Resp normal respiratory effort and clear to auscultation bilaterally Cardio regular rate, regular rhythm, S1 normal heart sound, S2 normal heart sound and no murmurs GI normal to inspection, nondistended, normoactive bowel sounds no CVA tenderness Back/Spine no CVA tenderness Extremity no clubbing, cyanosis or edema Skin no rashes or lesions noted Neuro oriented x3, CN's II-XII intact bilaterally and moves all extremities Psych mental status grossly normal Coding Level of Care Code Off vis,new,level 4 Exam Problem Focused Diagnoses Lupus anticoagulant positive R76.0 Acute deep vein thrombosis (DVT) of femoral vein of right lower extremity I82.411 Affected thrombotic vein of extremity: femoral Chronicity: acute DVT location: lower extremity Laterality: right Assessment and Plan Assessment and Plan (1) Lupus anticoagulant positive: Status: Acute Comment: Discussed evaluation of Lupus anti-coagulant evaluation, repeat testing. Pt agrees to proceed. Plan: To do comprehensive Lupus anticoagulant test, B2GPI antibodies, anticardiolipin antibodies. (2) Deep vein thrombosis (DVT): Status: Chronic Qualifiers: Affected thrombotic vein of extremity: femoral Chronicity: acute DVT location: lower extremity (more content not included)... Normal [facility] MR/BMS.Ayse 11-13-2024 MR/BMS.Sha[facility] [address] [place] [address] OFFICE VISIT Date of Service: 11/13/24 MR#: [id number] Acct: [id number] Name: LAURO ZARAGOZA Rep #: [id number] : 1985 Provider: OMEGA Carrillo Age/Sex: 39/M Location: [facility] Status: Signed Intake Vital Signs 03/01/24 07:56 11/13/24 09:32 Height 6 ft Weight: 144 lb BP 123/76 H Blood Pressure Location Lt brachial Position Sitting Respiration 15 Pulse 96 Pulse Source Monitor Temp 98.6 F Temp Source Temporal Pulse Oximetry (%) 98 Oxygen Delivery Method room air Intake Visit Reasons: Discuss Lab results Is patient in pain?: No Allergies No Known Allergies Allergy (Verified 11/13/24 09:34) Medications ???Medication ???Instructions ???Recorded ???Confirmed ???Type aspirin 81 mg tablet,delayed 81 mg PO DAILY 11/30/23 11/13/24 H istory release rivaroxaban 10 mg tablet (Xarelto) 10 mg PO QDAY #30 tabs 11/13/24 11/13/24 Rx Have you fallen in the past year?: No PFSH Medical History Deep vein thrombosis (DVT) Surgical History History of mandibular surgery Family History Other No pertinent family history Social History (Updated 11/13/24 @ 09:32 by Alea Stevens MA) household members: other details: sister current occupational status: employed 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[employer], as a [employer] pets and animals: Yes (1) pets and animals: dog(s) history of recent travel: No sexually active: Yes Smoking Status: Former smoker Electronic Cigarette Use: not used how long ago did patient quit smokin months quit status: considering quitting alcohol intake: current alcohol intake frequency: a few times a week Alcohol type: beer substance use type: marijuana caffeine: Yes (1-2) Type: coffee frequency: 1-2 times per week seatbelt use: always do you feel safe at home: Yes HPI HPI HPI: LAURO ZARAGOZA, is a 39 M who presents to the office today to discuss results of his hypercoagulable workup. Recall that he had unprovoked extensive RLE DVT diagnosed 11/30/23 and had previously had unprovoked RLE SVT and infrapopliteal DVT 11/2022. He was initiated on Xarelto. He had venogram 02/2024 which was negative for any significant central venous compression that could have caused his DVTs. He completed 6 months of therapeutic Xarelto. Repeat venous duplex showed only chronic DVT. Then Xarelto was held for 2 weeks prior to him obtaining his initial set of labs for hypercoagulable workup in June 2024 which was positive for lupus anticoagulant and functional protein S deficiency. Following these results, he was restarted on the prophylactic dose of Xarelto 10mg daily. 12 weeks later he held his Xarelto again for 7-14 days and we repeated the labs to confirm initial findings. Repeat labs on 10/25/24 were again positive for lupus anticoagulant, but this time negative for the functional protein S deficiency. He has continued Xarelto 10mg daily without adverse bleeding. While on this, he has not had any new lower extremity pain, redness, warmth, or swelling. He has had some intermittent mild edema since the initial DVT which generally improves with compression and elevation. He has not had any CP, SOB, palpitations. ROS General General: No weight change, appetite, fatigue, colon cancer, breast cancer or weakness HEENT HEENT: No difficulty swallowing, eye injury, eye surgery, swollen glands or hoarseness Endo Endocrine: No thyroid disease, diabetes mellitus, thyroid cancer, Hair loss, heat intolerance or cold intolerance Skin Skin: Yes changing moles; No rash Musc Musculoskeletal: No back problems, arthritis, rheumatoid arthritis, gout or joint pain Cardio Cardiovascular: No murmur, pacemaker, heart disease, atrial fibrillation, high blood pressure, heart attack, heart stent, palpitations, shortness of breath with exertion or chest pain Psych Psychiatric: No depression, anxiety or hearing voices Resp Respiratory: No shortness of breath, No sleep apnea, No cough, No COPD, No asthma, No emphysema and No wheezing Gastro Gastrointestinal: No abdominal pain, No nausea or vomiting, No diarrhea, No constipation, No blood in stool, No acid reflux, No hemorrhoids, No ulcers, No gallbladder problem and No black,tarry stools Dylon Hematologic: Yes blood thinners, No blood disorders, No bleeding, No anemia and Yes blood clots Neuro Neurologic: No system reviewed and no additional complaints, except as documented, No as per HPI, No abnormal gait, No abnormal hearing, No abnormal movements, No abnormal speech, No behavioral changes, No burning sensations, No confusion, No c (more content not included)... Normal [facility] Lupus Anticoagulant Compon 0 10-23-2024 aPTT Coag (Bld) [Time] 65.9 s High 0.0-43.5 [facility] Comment on above: Performed By: #### L 3410.9992 #### [facility] [address] [place], [address] aPTT Coag (Bld) [Time] 60.8 s High 0.0-40.5 [facility] Comment on above: Performed By: #### L 3410.9992 #### [facility] [address] [place], [address] DILUTE PT (dPT) 48.0 sec High 0.0-47.6 [facility] Comment on above: Performed By: #### L 3410.9992 #### [facility] [address] [place], [address] dPT Conf. Ratio 1.44 Ratio High 0.00-1.34 [facility] Comment on above: Performed By: #### L 3410.9992 #### [facility] [address] [place], [address] DRVVT 49.8 sec Abnormal 0.0-47.0 [facility] Comment on above: Performed By: #### L 3410.9992 #### [facility] [address] [place], [address] dRVVT MIX 40.3 sec Normal 0.0-40.4 [facility] Comment on above: Performed By: #### L 3410.9992 #### [facility] [address] [place], [address] HEX PHAS PHOSPH 30 sec Abnormal 0-11 [facility] Comment on above: Performed By: #### L 3410.9992 #### [facility] [address] [place], [address] Interpretation Comment: Normal . [facility] Comment on above: Result Comment: Resu lts are consistent with the presence of a lupus anticoagulant. As only persistent lupus anticoagulant (LA) positivity meets laboratory diagnostic criteria for antiphospholipid syndrome, repeat testing in 12 or more weeks is recommended, ideally in the absence of anticoagulant therapy. Important Note: The results of LA testing are not valid for patients receiving anticoagulant therapy. This treatment does not, however, interfere with anticardiolipin and beta-2 glycoprotein 1 antibody testing. Performed By: #### L 3410.9992 #### [facility] [address] [place], [address] THROMBIN TIME 15.6 sec Normal 0.0-23.0 [facility] Comment on above: Performed By: #### L 3410.9992 #### [facility] [address] [place], [address] Protein S Antigenon 10-24-19 25 PROTEIN S, FREE 94 Normal 61-136 [facility] Comment on above: Performed By: #### L 3410.9992 #### [facility] [address] [place], [address] PROTEIN S,TOTAL 68 Normal 60-150 [facility] Comment on above: Result Comment: This test was developed and its performance characteristics determined by [employer]. It has not been cleared or approved by the Food and Drug Administration. Performed By: #### L 3410.9992 #### [facility] [address] [place], [address] Protein S, Functionalon PROTEIN S, FUNC 80 Normal 63-140 [facility] Comment on above: Result Comment: Prot ein S activity may be falsely increased (masking an abnormal, low result) in patients receiving direct Xa inhibitor (e.g., rivaroxaban, apixaban, edoxaban) or a direct thrombin inhibitor (e.g., dabigatran) anticoagulant treatment due to assay interference by these drugs. Performed at: [address] [id number] Electroencephalogram Technologist: Mita Mcginnis MD, Phone: [phone] Performed By: #### L 3410.9992 #### [facility] [address] [place], [address] Dilute prothrombin time rati o confirmationOrdered By: Kendy Henning on 10-22-2024 Prothrombin Time Ratio 1.44 Ratio High 0.00-1.34 [facility] Interpretation of lupus anti coagulant assayOrdered By: Kendy Henning on 10-22-2024 Lupus Anticoagulant Interpretation Comment: . [facility] Comment on above: Results are consiste nt with the presence of a lupus anticoagulant. As onlypersistent lupus anticoagulant (LA) positivity meets laboratory diagnosticcriteria for antiphospholipid syndrome, repeat testing in 12 or more weeksis recommended, ideally in the absence of anticoagulant therapy.Important Note: The results of LA testing are not valid for patientsreceiving anticoagulant therapy. This treatment does not, however,interfere with anticardiolipin and beta-2 glycoprotein 1 antibody testing. Lupus anticoagulant neutrali zation dilute phospholipid time in platelet poor plasmaOrdered By: Kendy Henning on 10-22-2024 Prothrombin Time Diluted 48.0 sec High 0.0-47.6 [facility] Lupus anticoagulant-sensitiv e activated partial thromboplastin timeOrdered By: Kendy Henning on 10-22-2024 Lupus Anticoag PTT Mix/Correction 60.8 sec High 0.0-40.5 [facility] Lupus Anticoagulant APTT 65.9 sec High 0.0-43.5 [facility] Protein S Coag Qn (PPP)Order ed By: Kendy Henning on 10-22-2024 Total Protein S 68 % 60-150 [facility] Comment on above: This test was develo ped and its performance characteristicsdetermined by [employer]. It has not been cleared orapproved by the Food and Drug Administration. Protein S Free Ag IA Qn (PPP )Ordered By: Kendy Henning on 10-22-2024 Free Protein S 94 % 61-136 [facility] Protein S actual/normal Coag (PPP) [Relative time]Ordered By: Kendy Henning on 10-22-2024 Functional Protein S 80 % 63-140 [facility] Comment on above: Protein S activity m ay be falsely increased (masking anabnormal, low result) in patients receiving direct Xainhibitor (e.g., rivaroxaban, apixaban, edoxaban) or adirect thrombin inhibitor (e.g., dabigatran) anticoagulanttreatment due to assay interference by these drugs.Performed at: [address] [id number] Director: Mita Mcginnis MD, Phone: [phone] Thrombin time Coag (PPP) [Ti me]Ordered By: Kendy Henning on 10-22-2024 Thrombin Time 15.6 sec 0.0-23.0 [facility] aPTT W excess hexagonal phas e phospholipid Ql (PPP)Ordered By: Kendy Henning on 10-22-2024 Hexagonal Phase Phospholipid 30 sec High 0-11 [facility] dRVVT Coag (PPP) [Time]Order ed By: Kendy Henning on 10-22-2024 Dilute Bc Viper Venom (Lupus) 49.8 sec High 0.0-47.0 [facility] DRVVT Mixing Study 40.3 sec 0.0-40.4 [facility] Venous Duplex US, Unilateral on 07-30-2024 Venous Duplex US, Unilateral [facility] [address] [place] [address] Venous Duplex US, Unilateral 07/30/24 1005 MR#: [id number] Acct: [id number] Name: LAURO ZARAGOZA Rep #: [id number] : 1985 39 From: Ariel Salmeron MD Attending Dr: OMEGA Carrillo Status: REG CLI Ordering Dr: Kendy Henning Date: 07/30/24 Location: [facility] Sex: M C Admitted: Reason For Study: HX DVT RIGHT LEFT CFV is compressible, spontaneous, phasic, FV is compressible, spontaneous, phasic, competent and demonstrates normal competent and demonstrates normal augmentation. augmentation. FV is PARTIALLY COMPRESSIBLE with intralumnal echoes noted. Finding consistent with CHRONIC DVT. Reflux greater than 1.0 second is noted with augmentation in both FV duplicators. POP V is compressible, spontaneous, phasic and demonstrates reflux greater than 1.0 second with augmentation. T/P Trunk is PARTIALLY COMPRESSIBLE with intralumnal echoes noted. Finding consistent with CHRONIC DVT. PTV is compressible. RT PerV is compressible. SFJ is INCOMPETENT and measures 0.74 cm. GSV proximal thigh measures 0.33 x 0.37 cm. GSV at knee measures 0.29 x 0.30 cm. GSV INCOMPETENT throughout for greater than 0.5 seconds. SSV at junction is competent and measures 0.31 x 0.34 cm. SSV mid calf is competent and measures 0.31 cm. ASV mid thigh is INCOMPETENT for greater than 0.5 seconds and measures 0.41 x 0.47 cm. Procedure This is a venous duplex using B-mode, color flow and spectral Doppler. Exam performed in department. The exam was diagnostic. VL/Venous Duplex US, Unilateral Interpretation Summary Chronic deep vein thrombosis is noted in the right femoral vein, tibioperoneal trunk vein. Positive for reflux in duplicate femoral vein, saphenofemoral junction, great saphenous vein, accessory saphenous vein in thigh. Ordering Physician: Kendy Henning Referring Physician: Cliff Butler Performed By: Ghassan Gonzales RVT 07/30/24 1256 Date Ariel Salmeron MD CC: OMEGA Carrillo; Dr. Cliff Butler MD Date Dictated: 07/30/24 1005 Date Transcribed: 07/30/24 1256 General Merchandise Manager: Signed Normal [facility] AT III Func / Immunolon 11- AT3 AG, IMMUNOL 70 Abnormal 72-124 [facility] Comment on above: Order Comment: Test( s) 030838-Cwkselpecjgv Antigenwas developed and its performance characteristicsdetermined by [facility]. It has not been cleared or approvedby the Food and Drug Administration. Performed By: #### L 4500.2000, L3100.5800, L3100.5600, L3100.5700, L3300.0450, L3100.7250, L3100.7050, L4500.5000, L3100.5450, L3100.7325, L101.9900, L3100.8408, L4500.0100 ####[facility] [address] [place], [address] AT3 FUNCTIONAL 113 Normal 75-135 [facility] Comment on above: Order Comment: Test( s) 000231-Oyufcejdhqag Antigenwas developed and its performance characteristicsdetermined by [employer]. It has not been cleared or approvedby the Food and Drug Administration. Result Comment: Dire ct Xa inhibitor anticoagulants such as rivaroxaban, apixaban and edoxaban will lead to spuriously elevated antithrombin activity levels possibly masking a deficiency. Performed By: #### L 4500.2000, L3100.5800, L3100.5600, L3100.5700, L3300.0450, L3100.7250, L3100.7050, L4500.5000, L3100.5450, L3100.7325, L101.9900, L3100.8408, L4500.0100 ####[facility] [address] [place], [address] Anticardiolipin IgA,G,Mon ANTICARDIO IgA < 9 Normal 0-11 [facility] Comment on above: Order Comment: Test( s) 714118-Fxngtyysciis Antigenwas developed and its performance characteristicsdetermined by [employer]. It has not been cleared or approvedby the Food and Drug Administration. Result Comment: Nega tive: <12 Indeterminate: 12 - 20 Low-Med Positive: >20 - 80 High Positive: >80 Performed By: #### L 4500.2000, L3100.5800, L3100.5600, L3100.5700, L3300.0450, L3100.7250, L3100.7050, L4500.5000, L3100.5450, L3100.7325, L101.9900, L3100.8408, L4500.0100 ####[facility] [address] [place], [address] ANTICARDIO IgG 12 GPL U/mL Normal 0-14 [facility] Comment on above: Order Comment: Test( s) 551550-Nigpbtuvorvc Antigenwas developed and its performance characteristicsdetermined by [employer]. It has not been cleared or approvedby the Food and Drug Administration. Result Comment: Nega tive: <15 Indeterminate: 15 - 20 Low-Med Positive: >20 - 80 High Positive: >80 Performed By: #### L 4500.2000, L3100.5800, L3100.5600, L3100.5700, L3300.0450, L3100.7250, L3100.7050, L4500.5000, L3100.5450, L3100.7325, L101.9900, L3100.8408, L4500.0100 ####[facility] [address] [place], [place], [id number] Anticardio.IgM < 9 Normal 0-12 [facility] Comment on above: Order Comment: Test( s) 339810-Pzlnewpvagdt Antigenwas developed and its performance characteristicsdetermined by [employer]. It has not been cleared or approvedby the Food and Drug Administration. Result Comment: Nega tive: <13 Indeterminate: 13 - 20 Low-Med Positive: >20 - 80 High Positive: >80 Performed By: #### L 4500.2000, L3100.5800, L3100.5600, L3100.5700, L3300.0450, L3100.7250, L3100.7050, L4500.5000, L3100.5450, L3100.7325, L101.9900, L3100.8408, L4500.0100 ####[facility] [address] [place], [place], [id number] Complement C3on 07-10-2024 COMP C3 104 mg/dL Normal 82-167 [facility] Comment on above: Order Comment: Test( s) 780532-Ajcjgrnlxecf Antigenwas developed and its performance characteristicsdetermined by [employer]. It has not been cleared or approvedby the Food and Drug Administration. Performed By: #### L 4500.2000, L3100.5800, L3100.5600, L3100.5700, L3300.0450, L3100.7250, L3100.7050, L4500.5000, L3100.5450, L3100.7325, L101.9900, L3100.8408, L4500.0100 ####[facility] [address] [place], [place], [id number] Complement C4on 07-10-2024 COMPLEMENT, C4 21 mg/dL Normal 12-38 [facility] Comment on above: Order Comment: Test( s) 400653-Rjlqeqmybger Antigenwas developed and its performance characteristicsdetermined by [facility]. It has not been cleared or approvedby the Food and Drug Administration. Performed By: #### L 4500.2000, L3100.5800, L3100.5600, L3100.5700, L3300.0450, L3100.7250, L3100.7050, L4500.5000, L3100.5450, L3100.7325, L101.9900, L3100.8408, L4500.0100 ####[facility] [address] [place], [place], [id number] Complement CH50on 07-10-2024 COMPLEMENT,CH50 54 U/mL Normal >41 [facility] Comment on above: Order Comment: Test( s) 161867-Svvtsudsovpq Antigen was developed and its performance characteristics determined by [facility]. It has not been cleared or approved by the Food and Drug Administration. Result Comment: Age Male Female 1 - 30 days Not Estab. Not Estab. 31 days - 6 months >32 >20 7 months - 17 years >39 >39 >17 years >41 >41 NOTE: The adult (>17 years) reference interval range is used to flag abnormals on this report. If the patient is 17 years old or younger, use the table above to determine out of range values. Performed By: #### L 4500.2000, L3100.5800, L3100.5600, L3100.5700, L3300.0450, L3100.7250, L3100.7050, L4500.5000, L3100.5450, L3100.7325, L101.9900, L3100.8408, L4500.0100 #### [facility] [address] [place], [place], [id number] Fact V Leiden Mutationon FACTOR V LEIDEN Comment Normal . [facility] Comment on above: Order Comment: Test( s) 214530-Pmidgrovavxz Antigenwas developed and its performance characteristicsdetermined by [employer]. It has not been cleared or approvedby the Food and Drug Administration. Result Comment: Resu lt: c.1601G>A (p.Fpj298Ulu) - Not Detected This result is not associated with an increased risk for venous thromboembolism. See Additional Clinical Information and Comments. Additional Clinical Information: Venous thromboembolism is a multifactorial disease influenced by genetic, environmental, and circumstantial risk factors. The c.1601G>A (p. Qhd239Lla) variant in the F5 gene, commonly referred to as Factor V Leiden, is a genetic risk factor for venous thromboembolism. Heterozygous carriers of this variant have a 6- to 8-fold increased risk for venous thromboembolism. Individuals homozygous for this variant (ie, with a copy of the variant on each chromosome) have an approximately 80-fold increased risk for venous thromboembolism. Individuals who carry both a c.*97G>A variant in the F2 gene and Factor V Leiden have an approximately 20-fold increased risk for venous thromboembolism. Risks are likely to be even higher in more complex genotype combinations involving the F2 c.*97G>A variant and Factor V Leiden (PMID: 97782868). Additional risk factors include but are not limited to: deficiency of protein C, protein S, or antithrombin III, age, male sex, personal or family history of deep vein thromboembolism, smoking, surgery, prolonged immobilization, malignant neoplasm, tamoxifen treatment, raloxifene treatment, oral contraceptive use, hormone replacement therapy, and . Management of thrombotic risk and thrombotic events should follow established guidelines and fit the clinical circumstance. This result cannot predict the occurrence or recurrence of a thrombotic event. Comment: Genetic counseling is recommended to discuss the potential clinical implications of positive results, as well as recommendations for testing family members. Genetic Coordinators are available for health care providers to discuss results at [phone] Test Details: Variant Analyzed: c.1601G>A (p. Awf351Ryq), referred to as Factor V Leiden Methods/Limitations: DNA analysis of the F5 gene (NM_000130.5) was performed by PCR amplification followed by restriction enzyme analysis. The diagnostic sensitivity is >99%. Results must be combined with clinical information for the most accurate interpretation. Molecular-based testing is highly accurate, but as in any laboratory test, diagnostic errors may occur. False positive or false negative results may occur for reasons that include genetic variants, blood transfusions, bone marrow transplantation, somatic or tissue-specific mosaicism, mislabeled samples, or erroneous representation of family relationships. This test was developed and its performance characteristics determined by [employer]. It has not been cleared or approved by the Food and Drug Administration. References: Sylvain S, Queta GUZMÁN, Rodney R, Quinton WW, Wili JH; [employer] Professional Practice and Guidelines Committee. Addendum: [employer] consensus statement on factor V Leiden mutation testing. [employer] Med. 2020Oct 24. doi: 10.1038/[id number]-d. PMID: 37357997. Bhargavi EUCEDA. Factor V Leiden Thrombophilia. 1998January 02 (Updated 2017Aug 25). In: Bruce MP, Hoa HH, Yayo RA, et al., editors. Megan(R) (Internet). [place] ([place]): [facility]; 3222-7279. Available from: https://www.ncbi.nlm.nih.gov/books/RQW7503/ Vishal S, Queta GUZMÁN, Tl X, Otf B, Chi EB, Laura P, Car CS; [employer] Laboratory Mandolin Repairer Committee. Venous thromboembolism laboratory testing (factor V Leiden and factor II c.*97G>A), 2018 update: a technical standard of the [employer] and [employer] (ACMG). [employer] Med. 2018 Jul;20(12):8018-9858. doi: 10.1038/[id number]-b. Epub 2017May 26. PMID: 69941850. Performed By: #### L 4500.2000, L3100.5800, L3100.5600, L3100.5700, L3300.0450, L3100.7250, L3100.7050, L4500.5000, L3100.5450, L3100.7325, L101.9900, L3100.8408, L4500.0100 ####[facility] [address] [place], [place], [address] Reviewed By Comment Normal . [facility] Comment on above: Order Comment: Test( s) 362484-Diuxijckotqm Antigenwas developed and its performance characteristicsdetermined by [facility]. It has not been cleared or approvedby the Food and Drug Administration. Result Comment: Tech nical Component performed at [facility] RT Professional Component performed by: Maktoob Aide Soliman, Ph.D., [facility] Director, Molecular Genetics [address] [place] [address] [facility] [address] Performed By: #### L 4500.2000, L3100.5800, L3100.5600, L3100.5700, L3300.0450, L3100.7250, L3100.7050, L4500.5000, L3100.5450, L3100.7325, L101.9900, L3100.8408, L4500.0100 ####[facility] [address] [place], [place], [address] Factor II, DNA Analysison FACTOR II, DNA Comment Normal . [facility] Comment on above: Order Comment: Test( s) 656068-Qjjknbouskpd Antigen was developed and its performance characteristics determined by [facility]. It has not been cleared or approved by the Food and Drug Administration. Result Comment: Resu lt: c.*97G>A - Not Detected This result is not associated with an increased risk for venous thromboembolism. See Additional Clinical Information and Comments. Additional Clinical Information: Venous thromboembolism is a multifactorial disease influenced by genetic, environmental, and circumstantial risk factors. The c.*97G>A variant in the F2 gene is a genetic risk factor for venous thromboembolism. Heterozygous carriers have a 2- to 4-fold increased risk for venous thromboembolism. Homozygotes for the c.*97G>A variant are rare. The annual risk of VTE in homozygotes has been reported to be 1.1%/year. Individuals who carry both a c.*97G>A variant in the F2 gene and a c.1601G>A (p. Oxr439Meh) variant in the F5 gene (commonly referred to as Factor V Leiden) have an approximately 20- fold increased risk for venous thromboembolism. Risks are likely to be even higher in more complex genotype combinations involving the F2 c.*97G>A variant and Factor V Leiden (PMID: 47514219). Additional risk factors include but are not limited to: deficiency of protein C, protein S, or antithrombin III, age, male sex, personal or family history of deep vein thromboembolism, smoking, surgery, prolonged immobilization, malignant neoplasm, tamoxifen treatment, raloxifene treatment, oral contraceptive use, hormone replacement therapy, and . Management of thrombotic risk and thrombotic events should follow established guidelines and fit the clinical circumstance. This result cannot predict the occurrence or recurrence of a thrombotic event. Comments: Genetic counseling is recommended to discuss the potential clinical implications of positive results, as well as recommendations for testing family members. Genetic Coordinators are available for health care providers to discuss results at [phone] Test Details: Variant analyzed: c.*97G>A, previously referred to as L83204K Methods/Limitations: DNA analysis of the F2 gene (NM_000506.5) was performed by PCR amplification followed by restriction enzyme analysis. The diagnostic sensitivity is >99%. Results must be combined with clinical information for the most accurate interpretation. Molecular-based testing is highly accurate, but as in any laboratory test, diagnostic errors may occur. False positive or false negative results may occur for reasons that include genetic variants, blood transfusions, bone marrow transplantation, somatic or tissue-specific mosaicism, mislabeled samples, or erroneous representation of family relationships. This test was developed and its performance characteristics determined by [employer]. It has not been cleared or approved by the Food and Drug Administration. References: Sylvain S, Queta AK, Rodney R, Quinton WW, Wili JH; [employer] Professional Practice and Guidelines Committee. Addendum: [employer] consensus statement on factor V Leiden mutation testing. Ayleen Med. 2020Oct 24. doi: 10.1038/[id number]-x. PMID: 91214208. Bhargavi EUCEDA. Prothrombin Thrombophilia. 2005Mar 15 [Updated 2020Sep 25]. In: Bruce MP, Hoa HH, Yayo RA, et al., editors. Megan(R) [Internet]. [place] ([place]): [facility]; 6876-6862. Available from: https://www.ncbi.nlm.nih.gov/books/VVV7602/ Vishal S, Queta AK, Boothe X, Otf B, Chi EB, Laura P, Car CS; [facility] Laboratory Mandolin Repairer Committee. Venous thromboembolism laboratory testing (factor V Leiden and factor II c.*97G>A), 2018 update: a technical standard of the [employer] (ACMG). Ayleen Med. 2018 Jul;20(12):0235-2630. doi: 10.1038/[id number]-o. Epub 2017May 26. PMID: 50139998. Performed By: #### L 4500.2000, L3100.5800, L3100.5600, L3100.5700, L3300.0450, L3100.7250, L3100.7050, L4500.5000, L3100.5450, L3100.7325, L101.9900, L3100.8408, L4500.0100 #### [facility] [address] [place], [place], [phone] Lupus Anticoagulant Compon 1 09-09-2023 aPTT Coag (Bld) [Time] 46.5 s High 0.0-43.5 [facility] Comment on above: Order Comment: Test( s) 394034-Tgtxzwynoybq Antigenwas developed and its performance characteristicsdetermined by [facility]. It has not been cleared or approvedby the Food and Drug Administration. Performed By: #### L 4500.2000, L3100.5800, L3100.5600, L3100.5700, L3300.0450, L3100.7250, L3100.7050, L4500.5000, L3100.5450, L3100.7325, L101.9900, L3100.8408, L4500.0100 ####[facility] [address] [place], [place], [phone] aPTT Coag (Bld) [Time] 45.1 s High 0.0-40.5 [facility] Comment on above: Order Comment: Test( s) 700530-Zvpdurudqdfu Antigenwas developed and its performance characteristicsdetermined by [employer]. It has not been cleared or approvedby the Food and Drug Administration. Performed By: #### L 4500.2000, L3100.5800, L3100.5600, L3100.5700, L3300.0450, L3100.7250, L3100.7050, L4500.5000, L3100.5450, L3100.7325, L101.9900, L3100.8408, L4500.0100 ####[facility] [address] [place], [place], [phone] DILUTE PT (dPT) 37.4 sec Normal 0.0-47.6 [facility] Comment on above: Order Comment: Test( s) 327276-Pjfaggtfedld Antigenwas developed and its performance characteristicsdetermined by [employer]. It has not been cleared or approvedby the Food and Drug Administration. Performed By: #### L 4499.1999, L3100.5800, L3100.5600, L3100.5700, L3300.0450, L3100.7250, L3100.7050, L4500.5000, L3100.5450, L3100.7325, L101.9900, L3100.8408, L4500.0100 ####[facility] [address] [place], [place], [phone] dPT Conf. Ratio 1.19 Ratio Normal 0.00-1.34 [facility] Comment on above: Order Comment: Test( s) 236077-Fvgvvozzkozx Antigenwas developed and its performance characteristicsdetermined by [employer]. It has not been cleared or approvedby the Food and Drug Administration. Performed By: #### L 4499.1999, L3100.5800, L3100.5600, L3100.5700, L3300.0450, L3100.7250, L3100.7050, L4500.5000, L3100.5450, L3100.7325, L101.9900, L3100.8408, L4500.0100 ####[facility] [address] [place], [address] DRVVT 33.5 sec Normal 0.0-47.0 [facility] Comment on above: Order Comment: Test( s) 587233-Mwbzltgvdbdz Antigenwas developed and its performance characteristicsdetermined by [employer]. It has not been cleared or approvedby the Food and Drug Administration. Performed By: #### L 4500.2000, L3100.5800, L3100.5600, L3100.5700, L3300.0450, L3100.7250, L3100.7050, L4500.5000, L3100.5450, L3100.7325, L101.9900, L3100.8408, L4500.0100 ####[facility] [address] [place], [address] HEX PHAS PHOSPH 16 sec Abnormal 0-11 [facility] Comment on above: Order Comment: Test( s) 196365-Vckwmvkvjcxm Antigenwas developed and its performance characteristicsdetermined by [employer]. It has not been cleared or approvedby the Food and Drug Administration. Performed By: #### L 4500.2000, L3100.5800, L3100.5600, L3100.5700, L3300.0450, L3100.7250, L3100.7050, L4500.5000, L3100.5450, L3100.7325, L101.9900, L3100.8408, L4500.0100 ####[facility] [address] [place], [address] Interpretation Comment: Normal . [facility] Comment on above: Order Comment: Test( s) 949739-Onpnnmyvuefb Antigenwas developed and its performance characteristicsdetermined by [employer]. It has not been cleared or approvedby the Food and Drug Administration. Result Comment: Resu lts are consistent with the presence of a lupus anticoagulant. As only persistent lupus anticoagulant (LA) positivity meets laboratory diagnostic criteria for antiphospholipid syndrome, repeat testing in 12 or more weeks is recommended, ideally in the absence of anticoagulant therapy. Important Note: The results of LA testing are not valid for patients receiving heparin, direct Xa inhibitor (e.g., rivaroxaban, apixaban) or direct thrombin inhibitor (e.g., dabigatran) therapy. These drugs may cause false positive LA results but will not interfere with anticardiolipin and beta-2 glycoprotein 1 antibody testing. Performed By: #### L 4500.2000, L3100.5800, L3100.5600, L3100.5700, L3300.0450, L3100.7250, L3100.7050, L4500.5000, L3100.5450, L3100.7325, L101.9900, L3100.8408, L4500.0100 ####[facility] [address] [place], [address] THROMBIN TIME 16.1 sec Normal 0.0-23.0 [facility] Comment on above: Order Comment: Test( s) 874469-Oqxqzhgcukmd Antigenwas developed and its performance characteristicsdetermined by [employer]. It has not been cleared or approvedby the Food and Drug Administration. Performed By: #### L 4500.2000, L3100.5800, L3100.5600, L3100.5700, L3300.0450, L3100.7250, L3100.7050, L4500.5000, L3100.5450, L3100.7325, L101.9900, L3100.8408, L4500.0100 ####[facility] [address] [place], [address] Protein C, Functionalon 06-22 PROTEIN C,FUNC 100 Normal 73-180 [facility] Comment on above: Order Comment: Test( s) 604178-Zpkmvromocdb Antigenwas developed and its performance characteristicsdetermined by [employer]. It has not been cleared or approvedby the Food and Drug Administration. Result Comment: Perf ormed at: [address] [id number] Electroencephalogram Technologist: Mita Mcginnis MD, Phone: [phone] Performed at: [address] [id number] Electroencephalogram Technologist: Korey Devine PhD, Phone: [phone] Performed at: [facility] [place], [place] [id number] Electroencephalogram Technologist: Obdulio Brand [facility], Phone: [phone] Performed By: #### L 4500.2000, L3100.5800, L3100.5600, L3100.5700, L3300.0450, L3100.7250, L3100.7050, L4500.5000, L3100.5450, L3100.7325, L101.9900, L3100.8408, L4500.0100 ####[facility] [address] [place], [place], [phone] Protein S Antigenon 07-10-20 24 PROTEIN S, FREE 91 Normal 61-136 [facility] Comment on above: Order Comment: Test( s) 898650-Fjcklurxgqog Antigenwas developed and its performance characteristicsdetermined by [employer]. It has not been cleared or approvedby the Food and Drug Administration. Performed By: #### L 4500.2000, L3100.5800, L3100.5600, L3100.5700, L3300.0450, L3100.7250, L3100.7050, L4500.5000, L3100.5450, L3100.7325, L101.9900, L3100.8408, L4500.0100 ####[facility] [address] [place], [place], [phone] PROTEIN S,TOTAL 60 Normal 60-150 [facility] Comment on above: Order Comment: Test( s) 337078-Njacaeljfjui Antigenwas developed and its performance characteristicsdetermined by [employer]. It has not been cleared or approvedby the Food and Drug Administration. Result Comment: This test was developed and its performance characteristics determined by [employer]. It has not been cleared or approved by the Food and Drug Administration. Performed By: #### L 4500.2000, L3100.5800, L3100.5600, L3100.5700, L3300.0450, L3100.7250, L3100.7050, L4500.5000, L3100.5450, L3100.7325, L101.9900, L3100.8408, L4500.0100 ####[facility] [address] [place], [place], [phone] Protein S, Functionalon 06-22 PROTEIN S, FUNC 48 Low 63-140 [facility] Comment on above: Order Comment: Test( s) 402523-Nqqfilqiesxc Antigenwas developed and its performance characteristicsdetermined by [employer]. It has not been cleared or approvedby the Food and Drug Administration. Result Comment: A de ficiency of protein S (PS), either congenital or acquired, increases the risk of thromboembolism. PS activity levels may be falsely low in individuals with APCR/Factor V Leiden. Consider performing free protein S antigen in those with APCR/Factor V Leiden before making a diagnosis of protein S deficiency. Acquired PS deficiency is more common than congenital deficiency. PS values decrease with normal , and are also dependent on age, sex and hormone status. PS values tend to be lower in a younger age group and lower in women than in men. Levels may be decreased in pre-menopausal women on oral contraceptive agents. Acquired deficiency can occur as a result of vitamin K deficiency or antagonism, severe hepatic disorders, (hepatitis, cirrhosis, etc.), nephrotic syndrome, inflammatory bowel disease, certain chemotherapeutic agents, L-asparaginse therapy, sepsis, disseminated intravascular coagulation (DIC) and acute thrombosis. Levels may be decreased in patients with polycythemia vera, sickle cell disease and essential thrombocythemia. Repeat evaluation on a new plasma sample to confirm or refute this result should be considered, after ruling out acquired causes, depending on the clinical scenario. Performed By: #### L 4500.2000, L3100.5800, L3100.5600, L3100.5700, L3300.0450, L3100.7250, L3100.7050, L4500.5000, L3100.5450, L3100.7325, L101.9900, L3100.8408, L4500.0100 ####[facility] [address] [place], [place], [phone] PAYAM w/ Reflex Mult Confirmon 07-03-2024 PAYAM,DIRECT Negative Normal Negative [facility] Comment on above: Result Comment: Perf ormed at: - [facility] [address] [id number] Electroencephalogram Technologist: Korey Devine PhD, Phone: [phone] Performed By: #### L 4500.2000, L3100.5800, L3100.5600, L3100.5700, L3300.0450, L3100.7250, L3100.7050, L4500.5000, L3100.5450, L3100.7325, L101.9900, L3100.8408, L4500.0100 #### [facility] [address] [place], [place], [id number] Erythrocyte Sed Rateon 07-02 SED RATE 2 mm/hr Normal 0-20 [facility] Comment on above: Performed By: #### L 4500.2000, L3100.5800, L3100.5600, L3100.5700, L3300.0450, L3100.7250, L3100.7050, L4500.5000, L3100.5450, L3100.7325, L101.9900, L3100.8408, L4500.0100 #### [facility] [address] [place], [place], [address] Basic metabolic 2000 panelon 07-24-2023 Anion gap [Moles/Vol] 7 mmol/L Normal 5-16 [facility] Comment on above: Order Comment: Speci men Type: BLOOD SPECIMEN Ordering Facility: [facility] Address: [address] [place] [address] Performed By: #### 2 4321-2, 35965-5, 02162-3 #### [facility] CLIA [id number] [address] [place] [address] [place] Calcium [Mass/Vol] 8.9 mg/dL Normal 8.5-10.5 [facility] Comment on above: Order Comment: Speci men Type: BLOOD SPECIMEN Ordering Facility: [facility] Address: [address] [place] [id number] Performed By: #### 2 4321-2, 43019-9, #### [facility] CLIA [id number] [address] [place] [address] [place] Chloride [Moles/Vol] 105 mmol/L Normal 98-107 [facility] Comment on above: Order Comment: Speci men Type: BLOOD SPECIMEN Ordering Facility: [facility] Address: [address] [place] [address] Performed By: #### 2 4321-2, 58596-6, #### [facility] CLIA [id number] [address] [place], [place] [address] [place] CO2 [Moles/Vol] 28 mmol/L Normal 21-32 [facility] Comment on above: Order Comment: Speci men Type: BLOOD SPECIMEN Ordering Facility: [facility] Address: [address] [place] [address] Performed By: #### 2 4321-2, 66735-1, #### [facility] CLIA [id number] [address] [place], [place] [address] [place] Creatinine [Mass/Vol] 0.87 mg/dL Normal 0.50-1.40 [facility] Comment on above: Order Comment: Speci men Type: BLOOD SPECIMEN Ordering Facility: [facility] Address: [address] [place], [place] [address] Result Comment: Lisa ents receiving either N-Acetylcysteine (NAC) or Metamizole prior to venipuncture, may have falsely depressed results. Performed By: #### 2 4321-2, 55295-7, #### [facility] CLIA [id number] [address] [place], [place] [address] [place] Creatinine and Glomerular filtration rate.predicted panel (S/P/Bld) 115 mL/min/1.73m??? Normal >=60 [facility] Comment on above: Order Comment: Speci men Type: BLOOD SPECIMEN Ordering Facility: [facility] Address: [address] [place] [address] Result Comment: Diya mated Glomerular Filtration Rate (eGFR) is calculated using the 2020 CKD-EPI creatinine equation. This equation utilizes serum creatinine, sex, and age as parameters. The creatinine assay has traceable calibration to isotope dilution-mass spectrometry. Refer to KDIGO guidelines for clinical interpretation. In patients with unstable renal function, e.g. those with acute kidney injury, the eGFR may not accurately reflect actual GFR. Performed By: #### 2 4321-2, 22272-5, 98177-9 #### [facility] CLIA [id number] [address] [place], [place] [address] [place] Glucose [Mass/Vol] 30 mg/dL Critically low 70-100 [facility] Comment on above: Order Comment: Jennifer topete Type: BLOOD SPECIMEN Ordering Facility: [facility] Address: [address] [place] [address] Result Comment: The [place] Diabetes Association (ADA) provides guidance for cutoff values for fasting glucose and random glucose. The ADA defines fasting as no caloric intake for at least 8 hours. Fasting plasma glucose results between 100 to 125 mg/dL indicate increased risk for diabetes (prediabetes). Fasting plasma glucose results greater than or equal to 126 mg/dL meet the criteria for diagnosis of diabetes. In the absence of unequivocal hyperglycemia, results should be confirmed by repeat testing. In a patient with classic symptoms of hyperglycemia or hyperglycemic crisis, random plasma glucose results greater than or equal to 200 mg/dL meet the criteria for diagnosis of diabetes. Reference: Standards of Medical Care in Diabetes 2016, [place] [employer] Association. Diabetes Care. 2016.39(Suppl 1). CALL CRITICAL&XA&;Critical or Urgent Result(s) Called at: 18:00:55 on 07/24/2023 by: Stephany Celestin to and read back by: PABLO ED Results may be falsely elevated after the administration of Sulfapyridine. Results may be falsely depressed after the administration of Sulfasalazine. Performed By: #### 2 4321-2, 24539-4, 15915-5 #### [facility] CLIA [id number] [address] [place] [address] [place] Potassium [Moles/Vol] 3.7 mmol/L Normal 3.5-5.1 [facility] Comment on above: Order Comment: Speci men Type: BLOOD SPECIMEN Ordering Facility: [facility] Address: [address] [place] [address] Performed By: #### 2 4321-2, 24905-1, #### [facility] CLIA [id number] [address] [place] [address] [place] Sodium [Moles/Vol] 140 mmol/L Normal 136-145 [facility] Comment on above: Order Comment: Speci men Type: BLOOD SPECIMEN Ordering Facility: [facility] Address: [address] [place] [address] Performed By: #### 2 4321-2, 70041-9, #### [facility] CLIA [id number] [address] [place] [address] [place] Urea nitrogen [Mass/Vol] 10 mg/dL Normal 7-26 [facility] Comment on above: Order Comment: Speci men Type: BLOOD SPECIMEN Ordering Facility: [facility] Address: [address] [place] [address] Performed By: #### 2 4321-2, 96704-0, #### [facility] CLIA [id number] [address] [place] [address] [place] CBC W Auto Differential pane l (Bld)on 07-24-2023 Basophils (Bld) [#/Vol] 0.07 10*3/uL Normal <0.11 [facility] Comment on above: Order Comment: Speci men Type: BLOOD SPECIMEN Ordering Facility: [facility] Address: [address] [place] [address] Performed By: #### 5 7021-8 #### [facility] CLIA [id number] [address] [place] [address] [place] Basophils/100 WBC (Bld) 0.7 % Normal [facility] Comment on above: Order Comment: Speci men Type: BLOOD SPECIMEN Ordering Facility: [facility] Address: [address] [place] [address] Performed By: #### 5 7021-8 #### [facility] CLIA [id number] [address] [place] [address] [place] Differential cell count method Nom (Bld) Auto Normal [facility] Comment on above: Order Comment: Speci men Type: BLOOD SPECIMEN Ordering Facility: [facility] Address: [address] [place] [address] Performed By: #### 5 7021-8 #### [facility] CLIA [id number] [address] [place] [address] [place] Eosinophils (Bld) [#/Vol] 0.20 10*3/uL Normal <0.46 [facility] Comment on above: Order Comment: Speci men Type: BLOOD SPECIMEN Ordering Facility: [facility] Address: [address] [place] [address] Performed By: #### 5 7021-8 #### [facility] CLIA [id number] [address] [place] [address] [place] Eosinophils/100 WBC (Bld) 2.0 % Normal [facility] Comment on above: Order Comment: Speci men Type: BLOOD SPECIMEN Ordering Facility: [facility] Address: [address] [place] [address] Performed By: #### 5 7021-8 #### [facility] CLIA [id number] [address] [place] [address] [place] Erythrocyte distribution width (RBC) [Ratio] 12.4 % Normal 11.5-15.0 [facility] Comment on above: Order Comment: Speci men Type: BLOOD SPECIMEN Ordering Facility: [facility] Address: [address] [place] [address] Performed By: #### 5 7021-8 #### [facility] CLIA [id number] [address] [place] [address] [place] Hematocrit (Bld) [Volume fraction] 45.6 % Normal 39.0-51.0 [facility] Comment on above: Order Comment: Speci men Type: BLOOD SPECIMEN Ordering Facility: [facility] Address: [address] [place] [address] Performed By: #### 5 7021-8 #### [facility] CLIA [id number] [address] [place] [address] [place] Hemoglobin (Bld) [Mass/Vol] 16.1 g/dL Normal 13.0-17.0 [facility] Comment on above: Order Comment: Speci men Type: BLOOD SPECIMEN Ordering Facility: [facility] Address: [address] [place] [address] Performed By: #### 5 7021-8 #### [facility] CLIA [id number] [address] [place] [address] [place] Immature granulocytes (Bld) [#/Vol] 0.05 10*3/uL Normal <0.10 [facility] Comment on above: Order Comment: Speci men Type: BLOOD SPECIMEN Ordering Facility: [facility] Address: [address] [place] [address] Performed By: #### 5 7021-8 #### [facility] CLIA [id number] [address] [place] [address] [place] Immature granulocytes/100 WBC (Bld) 0.5 % Normal [facility] Comment on above: Order Comment: Speci men Type: BLOOD SPECIMEN Ordering Facility: [facility] Address: [address] [place] [address] Performed By: #### 5 7021-8 #### [facility] CLIA [id number] [address] [place] [address] [place] Lymphocytes (Bld) [#/Vol] 2.00 10*3/uL Normal 1.00-4.00 [facility] Comment on above: Order Comment: Speci men Type: BLOOD SPECIMEN Ordering Facility: [facility] Address: [address] [place] [address] Performed By: #### 5 7021-8 #### [facility] CLIA [id number] [address] [place] [address] [place] Lymphocytes/100 WBC (Bld) 20.3 % Normal [facility] Comment on above: Order Comment: Speci men Type: BLOOD SPECIMEN Ordering Facility: [facility] Address: [address] [place] [address] Performed By: #### 5 7021-8 #### [facility] CLIA [id number] [address] [place] [address] [place] MCH (RBC) [Entitic mass] 31.4 pg Normal 26.0-34.0 [facility] Comment on above: Order Comment: Speci men Type: BLOOD SPECIMEN Ordering Facility: [facility] Address: [address] [place] [address] Performed By: #### 5 7021-8 #### [facility] CLIA [id number] [address] [place] [address] [place] MCHC (RBC) [Mass/Vol] 35.3 g/dL Normal 30.5-36.0 [facility] Comment on above: Order Comment: Speci men Type: BLOOD SPECIMEN Ordering Facility: [facility] Address: [address] [place] [address] Performed By: #### 5 7021-8 #### [facility] CLIA [id number] [address] [place] [address] [place] MCV (RBC) [Entitic vol] 89.1 fL Normal 80.0-100.0 [facility] Comment on above: Order Comment: Speci men Type: BLOOD SPECIMEN Ordering Facility: [facility] Address: [address] [place] [address] Performed By: #### 5 7021-8 #### [facility] CLIA [id number] [address] [place] [address] [facility] [place] Monocytes (Bld) [#/Vol] 0.79 10*3/uL Normal <0.87 [facility] Comment on above: Order Comment: Speci men Type: BLOOD SPECIMEN Ordering Facility: [facility] Address: [address] [place] [address] Performed By: #### 5 7021-8 #### [facility] CLIA [id number] [address] [place] [address] [place] Monocytes/100 WBC (Bld) 8.0 % Normal [facility] Comment on above: Order Comment: Speci men Type: BLOOD SPECIMEN Ordering Facility: [facility] Address: [address] [place] [address] Performed By: #### 5 7021-8 #### [facility] CLIA [id number] [address] [place] [address] [place] Neutrophils (Bld) [#/Vol] 6.75 10*3/uL Normal 1.45-7.50 [facility] Comment on above: Order Comment: Speci men Type: BLOOD SPECIMEN Ordering Facility: [facility] Address: [address] [place] [address] Performed By: #### 5 7021-8 #### [facility] CLIA [id number] [address] [place] [address] [place] Neutrophils/100 WBC (Bld) 68.5 % Normal [facility] Comment on above: Order Comment: Speci men Type: BLOOD SPECIMEN Ordering Facility: [facility] Address: [address] [place] [address] Performed By: #### 5 7021-8 #### [facility] CLIA [id number] [address] [place] [address] [place] Nucleated RBC (Bld) [#/Vol] 10*3/uL Normal <0.01 [facility] Comment on above: Order Comment: Speci men Type: BLOOD SPECIMEN Ordering Facility: [facility] Address: [address] [place] [address] Performed By: #### 5 7021-8 #### [facility] CLIA [id number] [address] [place] [address] [place] Nucleated RBC/100 WBC (Bld) [Ratio] 0.0 /100 WBC Normal [facility] Comment on above: Order Comment: Speci men Type: BLOOD SPECIMEN Ordering Facility: [facility] Address: [address] [place] [address] Performed By: #### 5 7021-8 #### [facility] CLIA [id number] [address] [place], [place] [address] [place] Platelet mean volume (Bld) [Entitic vol] 9.6 fL Normal 9.0-12.7 [facility] Comment on above: Order Comment: Speci men Type: BLOOD SPECIMEN Ordering Facility: [facility] Address: [address] [place] [address] Performed By: #### 5 7021-8 #### [facility] CLIA [id number] [address] [place] [address] [place] Platelets (Bld) [#/Vol] 197 10*3/uL Normal 150-400 [facility] Comment on above: Order Comment: Speci men Type: BLOOD SPECIMEN Ordering Facility: [facility] Address: [address] [place] [address] Performed By: #### 5 7021-8 #### [facility] CLIA [id number] [address] [place] [address] [place] RBC (Bld) [#/Vol] 5.12 10*6/uL Normal 4.20-6.00 [facility] Comment on above: Order Comment: Speci men Type: BLOOD SPECIMEN Ordering Facility: [facility] Address: [address] [place] [address] Performed By: #### 5 7021-8 #### [facility] CLIA [id number] [address] [place] [address] [place] WBC (Bld) [#/Vol] 9.86 10*3/uL Normal 3.70-11.00 [facility] Comment on above: Order Comment: Speci men Type: BLOOD SPECIMEN Ordering Facility: [facility] Address: [address] [place] [address] Performed By: #### 5 7021-8 #### [facility] CLIA [id number] [address] [place], [place] [address] [facility] [place] ED NOTEon 07-24-2023 ED NOTE HNO ID: [id number] Author: Hans Ellington Tech Service: ? Author Type: Medical Billing Manager Type: ED Notes Filed: 07/24/2023 6:49 PM Note Text: Blood glucose 100. @1849. [facility] ED NOTE HNO ID: [id number] Author: Kristin Michele RN Service: ? Author Type: Registered Nurse Type: ED Notes Filed: 07/24/2023 6:06 PM Note Text: Pt given box lunch at this time. [facility] ED NOTE HNO ID: [id number] Author: Ruth Dover, Adrian Service: ? Author Type: Manager Performance Improvement and Medical Billing Manager Type: ED Notes Filed: 07/24/2023 4:54 PM Note Text: Bed: -ED Expected date: Expected time: Means of arrival: Comments: ems [facility] ED PROV NOTEon 07-24-2023 ED PROV NOTE HNO ID: [id number] Author: Carlee Roberts MD Service: ? Author Type: Physician Type: ED Provider Notes Filed: 07/24/2023 11:32 PM Note Text: ED Provider Note Patient Name: Lauro Zaragoza : 1985 SERVICE DATE: 07/24/23 History Patient presents with: Dizziness: Near syncopal event. Lowered to the ground . Patient was brought to the emergency department via EMS. Chief complaint is lightheadedness. Patient is a 38-year-old male who was at the movie theater. States he went to the restroom after the movie was over. While using the restroom he got lightheaded at the end of peeing. States he walked out of the restroom got more lightheaded. Became hot and sweaty. Lowered himself to the ground. Never blacked out. Never fell. He actually lowered himself to the ground. EMS was called and transported the patient to the emergency department. Patient states he did not eat any breakfast today. States he did have some popcorn and some sour patch kids at the [employer] theater. Currently feels well. States he feels much improved. Not had this happen in the past. Denies headaches or blurry vision. No neck pain or back pain. Denies chest pain. No shortness of breath. No cough or congestion. Has no fevers or chills or night sweats. Has no abdominal pain. Denies nausea or vomiting. No diarrhea. No constipation. There is no blood in her urine or stool. Denies any dysuria or urinary frequency. No testicular swelling or pain. There is no numbness tingling or weakness in the upper or lower extremities. PAST MEDICAL HISTORY Diagnosis Date PMH - PAST MEDICAL HISTORY OF Color Vision - Normal PMH - PAST MEDICAL HISTORY OF Pneumonia '92 History reviewed. No pertinent surgical history. FAMILY HISTORY Problem Relation Age of Onset Heart Mother Maternal side other (CVA [Other]) Mother Maternal side Hypertension Father Paternal side Diabetes Father Paternal side Social History Tobacco Use Smoking status: Every Day Packs/day: 0.25 Years: 3.00 Additional pack years: 0.00 Total pack years: 0.75 Types: Cigarettes Smokeless tobacco: Not on file Substance and Sexual Activity Alcohol use: No Drug use: No Sexual activity: Not on file ALLERGIES No Known Allergies Review of Systems Constitutional: Positive for diaphoresis. HENT: Negative. Eyes: Negative. Respiratory: Negative. Cardiovascular: Negative. Gastrointestinal: Negative. Endocrine: Negative. Genitourinary: Negative. Musculoskeletal: Negative. Skin: Negative. Allergic/Immunologic: Negative. Neurological: Positive for light-headedness. Hematological: Negative. Psychiatric/Behavioral: Negative. Physical Exam Vitals BP Pulse Temp Temp src Resp SpO2 Weight Height 07/24/23 1653 07/24/23 1653 07/24/23 1656 07/24/23 1656 07/24/23 1653 07/24/23 1653 07/24/23 1653 07/24/23 1653 120/66 83 36.9 ?C (98.5 ?F) Oral 15 100 % 63.5 kg (140 lb) 1.803 m (5' 11) Physical Exam Constitutional: Appearance: Normal appearance. HENT: Head: Normocephalic and atraumatic. Nose: Nose normal. Mouth/Throat: Mouth: Mucous membranes are moist. Pharynx: Oropharynx is clear. Eyes: Extraocular Movements: Extraocular movements intact. Conjunctiva/sclera: Conjunctivae normal. Pupils: Pupils are equal, round, and reactive to light. Cardiovascular: Rate and Rhythm: Normal rate and regular rhythm. Pulses: Normal pulses. Heart sounds: Normal heart sounds. Pulmonary: Effort: Pulmonary effort is normal. Breath sounds: Normal breath sounds. Abdominal: General: Bowel sounds are normal. There is no distension. Palpations: Abdomen is soft. Tenderness: There is no abdominal tenderness. There is no guarding or rebound. Musculoskeletal: General: Normal range of motion. Cervical back: Normal range of motion and neck supple. Skin: General: Skin is warm and dry. Neurological: General: No focal deficit present. Mental Status: He is alert and oriented to person, place, and time. Mental status is at baseline. Psychiatric: Mood and Affect: Mood normal. Behavior: Behavior normal. Thought Content: Thought content normal. Judgment: Judgment normal. Diagnostic Testing ED Labs Ordered and Reviewed BASIC METABOLIC PNL - Abnormal; Notable for the following components: Result Value Ref Range Glucose 30 (*) 70 - 100 mg/dL All other components within normal limits GLUCOSE, BLOOD (POC) - Abnormal; Notable for the following components: Glucose, Point of Care 100 (*) 74 - 99 mg/dL All other components within normal limits HEPATIC FUNCTION PNL - Normal MAGNESIUM BLD - Normal HIGH SENSITIVITY TROPONIN I - Normal CBC + DIFF XR CHEST 1V FRONTAL PORT Final Result IMPRESSION: No acute cardiopulmonary process. General Merchandise Manager: PSCB Transcribe Date/Time: Jul 24 2023 5:17P Dictated by : CRHISTA MCRAE MD This examination was interpreted and the report reviewed (more content not included)... Normal [facility] EKGon 07-24-2023 Electrocardiogram Ventricular Rate : 8 2 BPM Atrial Rate : 82 BPM P-R Interval : 144 ms QRS Duration : 94 ms Q-T Interval : 390 ms QTC Calculation(Bazett) : 456 ms Calculated P [place] : 92 degrees Calculated R [place] : 64 degrees Calculated T [place] : 76 degrees Normal sinus rhythm with sinus arrhythmia Normal ECG No previous ECGs available Confirmed by BRETT SOTOMAYOR MD ([id number]) on 07/25/2023 8:42:32 AM NAME : LAURO ZARAGOZA PID : [id number] : 1985 Gender : Male Race : ORD : Procedure Date : Jul 24 2023 17:02:00 Edit Date : Jul 25 2023 08:42:37 Diagnosis: Normal sinus rhythm with sinus arrhythmia Normal ECG No previous ECGs available Confirmed by BRETT SOTOMAYOR MD ([id number]) on 07/25/2023 8:42:32 AM Test Reason : STAT Location : 0 : ED 6 Overread By : BRETT SOTOMAYOR MD Edited By : BRETT SOTOMAYOR MD Referred By : , Acquired by : OB, Normal [facility] HIGH SENSITIVITY TROPONIN Io n 07-24-2023 Tropinin I.cardiac panel High sensitivity method 5.8 pg/mL Normal 0.0-54.0 [facility] Comment on above: Order Comment: Speci men Type: BLOOD SPECIMEN Ordering Facility: [facility] Address: [address] [place] [address] Result Comment: This assay uses different antibodies than our current assay, and assays, even by the same volleyball referee may recognize different regions of the antibody and cannot be used interchangeably. Expect results of this assay to run higher than the previous assay. Performed By: #### H FRANCINE #### [facility] CLIA [id number] [address] [place] [address] [place] Hepatic function 2000 panelo n 07-24-2023 Albumin [Mass/Vol] 3.9 g/dL Normal 3.2-5.0 [facility] Comment on above: Order Comment: Speci men Type: BLOOD SPECIMEN Ordering Facility: [facility] Address: [address] [place] [address] Performed By: #### 2 4321-2, 23677-0, 14374-9 #### [facility] CLIA [id number] [address] [place] [address] [place] ALP [Catalytic activity/Vol] 82 U/L Normal 45-117 [facility] Comment on above: Order Comment: Speci men Type: BLOOD SPECIMEN Ordering Facility: [facility] Address: [address] [place] [address] Performed By: #### 2 4321-2, 32741-2, 58241-1 #### [facility] CLIA [id number] [address] [place] [address] [place] ALT [Catalytic activity/Vol] 20 U/L Normal 13-61 [facility] Comment on above: Order Comment: Speci men Type: BLOOD SPECIMEN Ordering Facility: [facility] Address: [address] [place] [address] Result Comment: Resu lts may be falsely depressed after the administration of Sulfasalazine and/or Sulfapyridine. Performed By: #### 2 4321-2, 33625-5, #### [facility] CLIA [id number] [address] [place], [place] [address] [place] AST [Catalytic activity/Vol] 19 U/L Normal 8-34 [facility] Comment on above: Order Comment: Speci men Type: BLOOD SPECIMEN Ordering Facility: [facility] Address: [address] [place] [address] Result Comment: Resu lts may be falsely depressed after the administration of Sulfasalazine and/or Sulfapyridine. Performed By: #### 2 4321-2, 65952-9, #### [facility] CLIA [id number] [address] [place], [place] [address] [place] Bilirubin [Mass/Vol] 0.4 mg/dL Normal 0.2-1.0 [facility] Comment on above: Order Comment: Speci men Type: BLOOD SPECIMEN Ordering Facility: [facility] Address: [address] [place] [address] Performed By: #### 2 4321-2, 41276-1, #### [facility] CLIA [id number] [address] [place], [place] [address] [place] Bilirubin.conjugated [Mass/Vol] 0.2 mg/dL Normal 0.0-0.4 [facility] Comment on above: Order Comment: Speci men Type: BLOOD SPECIMEN Ordering Facility: [facility] Address: [address] [place] [address] Performed By: #### 2 4321-2, 35529-3, #### [facility] CLIA [id number] [address] [place], [place] [address] [place] Protein [Mass/Vol] 7.0 g/dL Normal 6.0-8.5 [facility] [facility] Comment on above: Order Comment: Speci men Type: BLOOD SPECIMEN Ordering Facility: [facility] Address: [address] [place] [address] Performed By: #### 2 4321-2, 19462-5, #### [facility] CLIA [id number] [address] [place], [place] [address] [place] Magnesium SerPl-mCncon 07-24 Magnesium [Mass/Vol] 1.7 mg/dL Normal 1.6-2.6 [facility] Comment on above: Order Comment: Speci men Type: BLOOD SPECIMEN Ordering Facility: [facility] Address: [address] [place] [address] Performed By: #### 2 4321-2, 16248-9, #### [facility] CLIA [id number] [address] [place], [place] [address] [place] XR CHEST 1V FRONTAL PORTon 1 09-24-2022 XR CHEST 1V FRONTAL PORT * * *Final Report* * * DATE OF EXAM: Jul 24 2023 5:13PM RHX [id number] - XR CHEST 1V FRONTAL PORT / PROCEDURE REASON: Chest pain, nonspecific * * * * Physician Interpretation * * * * EXAM: XR CHEST 1V FRONTAL PORT Exam Date/Time: 07/24/2023 5:13 PM CLINICAL HISTORY: Chest pain, nonspecific, Syncope/presyncope Comparison: No available prior. RESULT: Lines, tubes, and devices: None. Lungs and pleura: Bilateral lung jalloh are clear. No pneumothorax or suggestion for obvious/significant pleural effusions. Cardiomediastinal silhouette: Normal cardiomediastinal silhouette. IMPRESSION: No acute cardiopulmonary process. General Merchandise Manager: PSCB Transcribe Date/Time: Jul 24 2023 5:17P Dictated by : CHRISTA MCRAE MD This examination was interpreted and the report reviewed and electronically signed by: CHRISTA MCRAE MD on Jul 24 2023 5:17PM EST [id number] Normal [facility] Absolute lymphocyte countOrd ered By: Cliff Butler on 07-06-2023 Lymphocytes Auto (Unsp spec) [#/Vol] 0.97 10*3/uL 0.83-4.51 [facility] Basophil percentageOrdered B y: Cliff Butler on 07-06-2023 Basophils/100 WBC (Bld) 1.1 % 0-1 [facility] Bilirubin [Mass/Vol] 0.50 mg/dL 0.20-1.00 [facility] Comment on above: For patients on eltr ombopag therapy, use of Dimension [place] TBIL is not recommended. Chloride [Moles/Vol] 104 mmol/L 98-107 [facility] Cholesterol [Mass/Vol] 98 mg/dL <200 [facility] Comment on above: <200 mg/dL Desirable 200-240 mg/dL Borderline >240 mg/dL High Risk Eosinophils/100 WBC (Bld) 1.1 % 0-5 [facility] Glucose [Mass/Vol] 95 mg/dL 74-106 [facility] Neutrophils (Bld) [#/Vol] 4.8 10*3/uL 2.0-7.7 [facility] Neutrophils/100 WBC (Bld) 74.9 % 47-70 [facility] Potassium [Moles/Vol] 4.4 mmol/L 3.5-5.1 [facility] Protein [Mass/Vol] 7.5 g/dL 6.4-8.2 [facility] Sodium [Moles/Vol] 139 mmol/L 136-145 [facility] Triglyceride [Mass/Vol] 42 mg/dL <199 [facility] Comment on above: The drugs N-Acetylcy steine and Metamizole may falsely depress this assay.Serum Triglycerides Reference Interval Normal <150 mg/dL Borderline high 150 - 199 mg/dL High 200 - 499 mg/dL Very High > or = 500 mg/dL WBC (Bld) [#/Vol] 6.4 10*3/uL 4.4-11.0 [facility] Blood erythrocytes count (nu mber/volume)Ordered By: Cliff Butler on 07-06-2023 RBC (Bld) [#/Vol] 5.13 10*6/uL 4.6-6.[address] [facility] Blood hemoglobin measurement (mass/volume)Ordered By: Cliff Butler on 07-06-2023 Hemoglobin (Bld) [Mass/Vol] 16.3 g/dL 13.0-16.5 [facility] Blood lymphocytes/100 leukoc ytesOrdered By: Cliff Butler on 07-06-2023 Lymphocytes/100 WBC (Bld) 15.1 % 19-41 [facility] Blood monocytes/100 leukocyt esOrdered By: Cliff Butler on 07-06-2023 Monocytes/100 WBC (Bld) 7.5 % 0-10 [facility] Blood platelet mean volumeOr dered By: Cliff Butler on 07-06-2023 Platelet mean volume (Bld) [Entitic vol] 10.4 fL 6.2-12.0 [facility] Determination of erythrocyte mean corpuscular volume (MCV)Ordered By: Cliff Butler on 07-06-2023 MCV (RBC) [Entitic vol] 94.2 fL 80-94 [facility] Hematocrit Auto (Bld) [Volum e fraction]Ordered By: Cliff Butler on 07-06-2023 Hematocrit (Bld) [Volume fraction] 48.3 % 40-54 [facility] Laboratory - Chemistry and C hemistry - challengeOrdered By: Cliff Butler on 07-06-2023 ALP [Catalytic activity/Vol] 68 U/L 45-117 [facility] ALT [Catalytic activity/Vol] 20 U/L 16-61 [facility] CO2 [Moles/Vol] 27.0 mmol/L 21.0-32.0 [facility] Globulin (S) [Mass/Vol] 3.8 g/dL 2.2-4.2 [facility] Urea nitrogen/Creatinine [Mass ratio] 15.0 mg/mg 10-20 [facility] Laboratory - CoagulationOrde red By: Cliff Butler on 07-06-2023 aPTT Coag (Bld) [Time] 41.6 s 24.1-36.2 [facility] Laboratory - Hematology and Cell countsOrdered By: Cliff Butler on 07-06-2023 Erythrocyte distribution width (RBC) [Entitic vol] 43.2 fL 35.1-43.9 [facility] Erythrocyte distribution width (RBC) [Ratio] 12.6 % 11.6-14.6 [facility] Immature granulocytes/100 WBC (Bld) 0.300 % 0.0-0.9 [facility] Comment on above: IG% - Immature Granu locytes (promyelocytes, myelocytes and metamyelocytes) > 1% indicates that a LEFT SHIFT is Present. MCH (RBC) [Entitic mass] 31.8 pg 27.0-32.0 [facility] Nucleated RBC/100 WBC (Bld) [Ratio] 0 % 0-5 [facility] MCHC Auto (RBC) [Mass/Vol]Or dered By: Cliff Butler on 07-06-2023 MCHC (RBC) [Mass/Vol] 33.7 g/dL 32-36 [facility] No Panel InformationOrdered By: Cliff Butler on 07-06-2023 Estimated GFR (MDRD) Amer 155 mL/min >60 [facility] Comment on above: GFR Calc Estimated GFR (MDRD) Non-Af Amer 128 mL/min >60 [facility] Comment on above: Non- GFR Calc Platelets bldOrdered By: José Miguel Butler on 07-06-2023 Platelets (Bld) [#/Vol] 176 10*3/uL 150-450 [facility] Serum or plasma albumin alexus urement (mass/volume)Ordered By: Cliff Butler on 07-06-2023 Albumin [Mass/Vol] 3.7 g/dL 3.2-5.0 [facility] Serum or plasma albumin/glob ulin mass ratioOrdered By: Cliff Butler on 07-06-2023 Albumin/Globulin [Mass ratio] 1.0 {ratio} 0.9-2.4 [facility] Serum or plasma calcium alexus urement (mass/volume)Ordered By: Cliff Butler on 07-06-2023 Calcium [Mass/Vol] 8.9 mg/dL 8.5-10.1 [facility] Serum or plasma cholesterol in HDL measurement (mass/volume)Ordered By: Cliff Butler on 07-06-2023 Cholesterol in HDL [Mass/Vol] 66 mg/dL >40 [facility] Comment on above: The drugs N-Acetylcy steine and Metamizole may falsely depress this assay. Reference Range HDL <40 mg/dL Low HDL Cholesterol HDL >or= 60 mg/dL High HDL Cholesterol Serum or plasma cholesterol in VLDL measurement (mass/volume)Ordered By: Cliff Butler on 07-06-2023 Cholesterol in VLDL [Mass/Vol] 8 mg/dL 5-40 [facility] Serum or plasma creatinine m easurement (mass/volume)Ordered By: Cliff Butler on 07-06-2023 Creatinine [Mass/Vol] 0.73 mg/dL 0.70-1.30 [facility] Comment on above: The validity of the calculated GFR & GFRAA in patients over 70 years has not been determined. Clinical correlation is essential. Serum or plasma low density lipoprotein (LDL) cholesterol measurement (mass/volume)Ordered By: Cliff Butler on 07-06-2023 Cholesterol in LDL [Mass/Vol] 24 mg/dL 0-130 [facility] Serum or plasma urea nitroge n measurement (mass/volume)Ordered By: Cliff Butler on 07-06-2023 Urea nitrogen [Mass/Vol] 11 mg/dL 7-18 [facility] Thin prep Papanicolaou smear with manual screeningOrdered By: Cliff Butler on 07-06-2023 Thin prep Papanicolaou smear with manual screening 16 U/L 15-37 [facility] Thin prep Papanicolaou smear with manual screening 8 5-15 [facility] Vital Signs Date Time Vital Sign Value Performing Clinician Faci lity 11-30-2023 13:55-0400 Body temperature 98.4 [degF] Dr. Cliff Butler Work Phone: [facility] 11-30-2023 13:55-0400 Body weight 65.[address] Cliff Butler Work Phone: [facility] 11-30-2023 13:55-0400 Diastolic blood pressure 71 mm[Hg] Dr. Cliff Butler Work Phone: [facility] 11-30-2023 13:55-0400 Heart rate 86 /min Dr. Cliff Butler Work Phone: [facility] 04-10-2024 13:55-0400 Respiratory rate 16 /min Dr. Cliff Butler Work Phone: [facility] 11-30-2023 13:55-0400 SaO2% (BldA) [Mass fraction] 98 % Dr. Cliff Butler Work Phone: [facility] 11-30-2023 13:55-0400 Systolic blood pressure 120 mm[Hg] Dr. Cliff Butler Work Phone: [facility] 07-06-2023 08:51-0500 Body height 182.88 cm No Primary Care Physician [facility] 07-06-2023 08:51-0500 Body mass index (BMI) [Ratio] 19.2 kg/m2 No Primary Care Physician [facility] 07-06-2023 08:51-0500 Body temperature 98.3 [degF] No Primary Care Physician [facility] 07-06-2023 08:51-0500 Body weight 64.41 kg No Primary Care Physician [facility] 07-06-2023 08:51-0500 Diastolic blood pressure 74 mm[Hg] No Primary Care Physician [facility] 07-06-2023 08:51-0500 Heart rate 82 /min No Primary Care Physician [facility] 07-06-2023 08:51-0500 Respiratory rate 16 /min No Primary Care Physician [facility] 07-06-2023 08:51-0500 SaO2% (BldA) [Mass fraction] 99 % No Primary Care Physician [facility] 07-06-2023 08:51-0500 Systolic blood pressure 130 mm[Hg] No Primary Care Physician [facility] 11-30-2022 12:31-0400 Body height 182.88 cm [facility] 11-30-2022 12:31-0400 Body mass index (BMI) [Ratio] 20.5 kg/m2 [facility] 11-30-2022 12:31-0400 Body temperature 98.8 [degF] [facility] 11-30-2022 12:31-0400 Body weight 68.49 kg [facility] 11-30-2022 12:31-0400 Diastolic blood pressure 87 mm[Hg] [facility] 11-30-2022 12:31-0400 Heart rate 80 /min [facility] 11-30-2022 12:31-0400 Respiratory rate 18 /min [facility] 11-30-2022 12:31-0400 SaO2% (BldA) [Mass fraction] 99 % [facility] 11-30-2022 12:31-0400 Systolic blood pressure 137 mm[Hg] [facility] Encounters Encounter Date Encounter Type Care Provider Facility Start: 03-26-2025 ambulatory Cliff Butler Facility :[facility] Start: 12-24-2024 End: 12-24-2024 ambulatory Cliff Butler Facility:[facility] Start: 12-10-2024 End: 12-10-2024 ambulatory Cliff Butler Facility:[facility] Start: 11-13-2024 End: 11-13-2024 ambulatory Kendy Henning Facility:[facility] Start: 10-22-2024 End: 10-22-[address] Cliff Butler MD Work Phone: [facility] Work Phone: Start: 10-22-2024 End: 10-22-2024 Patient encounter procedure Kendy Henning PA -Laboratory Work Phone: Start: 10-22-2024 End: 10-22-2024 ambulatory Kendy Henning Facility:[facility] Start: 07-30-2024 ambulatory Cliff Butler Facility :[facility] Start: 07-30-2024 Non-patient / Non-visit Dr. Ariel mcfadden MD -[facility] Start: 07-30-2024 End: 07-30-2024 Patient encounter procedure Kendy Henning PA -Cardiovascular Services Work Phone: Start: 07-30-2024 End: 07-30-2024 ambulatory Cliff Butler Facility:[facility] Start: 07-02-2024 End: 07-02-2024 ambulatory Cliff Butler Facility:[facility] Start: 11-30-2023 Non-patient / Non-visit Dr. Verdin Work Phone: [facility] Start: 11-30-2023 End: 11-30-[address] Cliff Butler Work Phone: [facility] Work Phone: Start: 11-30-2023 End: 11-30-[address] Cliff Butler Work Phone: [facility] Work Phone: Start: 07-24-2023 End: 07-24-2023 Emergency department patient visit CARLEE ROBERTS Facility:[id number] Start: 07-06-2023 End: 07-06-2023 ambulatory No Primary Care Physician [facility] Work Phone: Start: 07-06-2023 End: 07-06-2023 Patient encounter procedure No Primary Care Physician [facility] Work Phone: Start: 11-30-2022 End: 11-30-2022 Emergency department patient visit [facility]-Emergency Department Plan of Treatment Date Care Activity Detail Author Start: 07-06-2023 Factor VIII: C assay [facility] Start: 07-06-2023 Protein C Ag actual/normal in Platelet poor plasma by Immunoassay [facility] Start: 07-06-2023 Protein S assay [facility] Start: 07-06-2023 von Willebrand facto r (vWf) ristocetin cofactor actual/normal in Platelet poor plasma by Platelet aggregation [facility] Patient Education DVT Dc ED Thrombophlebitis, Superficial [facility] Work Phone: Patient referral [facility] Work Phone: Protein S Free Ag actual/normal in Platelet poor plasma by Immunoassay [facility] Tobacco use cessatio n education [facility] US.doppler Lower extremity vein [facility] Immunizations Immunization Date Immunization Notes Care Provider Fa cility 02-05-2021 Covid (Moderna) No Primary C are Physician [facility] 01-07-2021 Covid (Moderna) No Primary C are Physician [facility] 05-16-2009 influenza, injectabl e, quadrivalent, preservative free No Primary Care Physician [facility] 10-22-2002 TD(adult) unspecifie d formulation No Primary Care Physician [facility] 09-12-2000 hepatitis B vaccine, pediatric or pediatric/adolescent dosage No Primary Care Physician [facility] 05-02-2000 hepatitis B vaccine, pediatric or pediatric/adolescent dosage No Primary Care Physician [facility] 03-07-2000 hepatitis B vaccine, pediatric or pediatric/adolescent dosage No Primary Care Physician [facility] 03-07-2000 measles, mumps and rubella virus vaccine No Primary Care Physician [facility] 11-20-1992 diphtheria, tetanus toxoids and acellular pertussis vaccine No Primary Care Physician [facility] 11-20-1992 trivalent poliovirus vaccine, live, oral No Primary Care Physician [facility] 01-06-1989 haemophilus influenz ae type b vaccine, PRP-T conjugate No Primary Care Physician [facility] 10-21-1988 diphtheria, tetanus toxoids and acellular pertussis vaccine No Primary Care Physician [facility] 10-21-1988 trivalent poliovirus vaccine, live, oral No Primary Care Physician [facility] 07-22-1988 measles, mumps and rubella virus vaccine No Primary Care Physician [facility] 1987 diphtheria, tetanus toxoids and acellular pertussis vaccine No Primary Care Physician [facility] 1987 diphtheria, tetanus toxoids and acellular pertussis vaccine No Primary Care Physician [facility] 1987 trivalent poliovirus vaccine, live, oral No Primary Care Physician [facility] 1987 diphtheria, tetanus toxoids and acellular pertussis vaccine No Primary Care Physician [facility] 1987 trivalent poliovirus vaccine, live, oral No Primary Care Physician [facility] Payers Date Payer Category Payer Self-pay 2024 Unknown [id number] 2015 Private Health Insurance [id number] Self-pay SELF PAY [facility] [id number] Unknown [id number] Unknown [id number] Unknown [id number] Unknown [id number] Unknown [id number] Unknown [id number] Unknown [id number] Unknown [id number] Social History Date Type Detail Facility Start: 11-30-2022 End: 11-30-2023 Tobacco smoking status WIIS Unknown if ever smoked [facility] Start: 1985 Sex Assigned At Male [facility] Start: 03-01-2024 Tobacco smoking stat us WIIS Smokes tobacco daily (finding) [facility] Start: 11-01-2024 Sex Male (finding) [facility] Evaluation note Note Date & Type Note Facility Evaluation note No assessment information availa [facility] Work Phone: Evaluation note Note Date & Type Note Facility Evaluation note Diagnosis Onset Date Smokes cigarettes noneactive Screening for cardiovascular condition noneactive Establishing care with yamile luu, encounter for noneactive DVT (deep venous thrombosis) noneactive Annual physical exam noneact niko [facility] Work Phone: Evaluation note Note Date & Type Note Facility Evaluation note Diagnosis Onset Date Deep vein thrombosis (DVT) a cute [facility] Work Phone: Reason for referral (narrative) Note Date & Type Note Facility Reason for referral (narrative) No reason for referral information available [facility] Work Phone: Chief Complaint and Reason for Visit Chief Complaint RIGHT LEG PAIN 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 Reason for Visit Smokes cigarettes Screening for cardiovascular condition Establishing care with new doctor, encounter for DVT (deep venous thrombosis) Annual physical exam Chief Complaint Swelling in Rt Leg, Pain when standing PAIN IN RT LEG Reason for Visit Deep vein thrombosis (DVT) Chief Complaint Admit Date RT LEG VENOUS INSUFFICIENCY July 9:39am INT LAB ORDERS October 22, 2024 9:41 am Advance Directives No Advanced Directives Records Found Advance Directive Response Recorded Date/ Time Living Will No November 30, 2022 12:45pm Power of Pre Wave Assembler No November 30 12:45pm Advance Directive Response Recorded Date/ Time Living Will No November 30, 2022 11:45am Power of Pre Wave Assembler No November 30 11:45am Advance Directive Response Recorded Date/ Time Advance Directives No March 01 7:56am Summary Purpose Family History No Family History Records Found Additional Source Comments Care Teams (unrecognized sec tion and content) Team Status: Active Member Role Status Dates Dr. Shiv Callejas MD Family Provider Active No Primary Care Physician Primary Care Provider Active Team Status: Inactive Member Role Status Dates No Primary Care Physician Primary Care Provider Active Dr. Maximiliano Kim DO Emergency Provider Active Team Status: Active Member Role Status Dates Dr. Shiv Callejas MD Family Provider Active Dr. Cliff Butler MD Primary Care Provider Active Team Status: Inactive Member Role Status Dates No Primary Care Physician Primary Care Provider, Refer ring Provider Active Dr. Cliff Butler MD Attending Provider Active Team Status: Inactive Member Role Status Dates Dr. Cliff Butler MD Primary Care Pro vider, Attending Provider, Referring Provider Active Team Status: Inactive Member Role Status Dates Dr. Cliff Butler MD Primary Care Provider, Referri ng Provider Active OMEGA Carrillo Attending Provider Active Team Status: Active Member Role Status Dates Dr. Cliff Butler MD Primary Care Provider Active Dr. Ariel Salmeron MD Attending Provider Active Team Status: Inactive Member Role Status Dates Dr. Cliff Butler MD Primary Care Provider Active OMEGA Carrillo Attending Provider, Referring Provid er Active Team Status: Inactive Member Role Status Dates Dr. Cliff Butler MD Primary Care Provider Active Start: July 30, 2024 End: July 30, 2024 OMEGA Carrillo Attending Provider Active Star t: July 30, 2024 End: July 30, 2024 OMEGA Carrillo Referring Provider Active Star t: July 30, 2024 End: July 30, 2024 Team Status: Active Member Role Status Dates Dr. Cliff Butler MD Primary Care Provider Active Start: July 30, 2024 Dr. Ariel Salmeron MD Attending Provider Active S tart: July 30, 2024 OMEGA Carrillo Referring Provider Active Star t: July 30, 2024 Team Status: Inactive Member Role Status Dates Dr. Cliff Butler MD Primary Care Provider Active Start: October 22, 2024 End: October 22, 2024 OMEGA Carrillo Attending Provider Active Star t: October 22, 2024 End: October 22, 2024 OMEGA Carrillo Referring Provider Active Star t: October 22, 2024 End: October 22, 2024 Goals (unrecognized section and content) Goals may be documented in a n alternate sectionGoals may be documented in an alternate sectionGoals may be documented in an alternate sectionGoals may be documented in an alternate section (unrecognized sect ion and content) No Status Records FoundNo Status Records Found INFORMATION SOURCE (unrecogn ized section and content) DATE CREATED AUTHOR 07/26/2023 [facility] Ce nter DATE CREATED AUTHOR AUTHOR'S MARCELA ATION 03/26/2025 [facility] FOR RECORDS PERTAINING TO PATIENTS WHO ARE OR HAVE BEEN ENROLLED IN A CHEMICAL DEPENDENCY/SUBSTANCEABUSE PROGRAM, SOME INFORMATION MAY BE OMITTED. This clinical summary was aggregated from multiple sources. Caution should be exercised in using it in the provision of clinical care. This summary normalizes information from multiple sources, and as a consequence, information in this document may materially change the coding, format and clinical context of patient data. In addition, data may be omitted in some cases. CLINICAL DECISIONS SHOULD BE BASED ON THE PRIMARY CLINICAL RECORDS. [employer] provides no warranty or guarantee of the accuracy or completeness of information in this document.
== END | disposition home or self-care (01) ==
PROVIDERS: PCP Internal Medicine; Referring Provider Internal Medicine Medical Oncology; Visit Provider Internal Medicine Medical Oncology
DX: I82.411 Acute embolism and thrombosis of right femoral vein (principal); I70.92 Chronic total occlusion of artery of the extremities; R76.0 Raised antibody titer; R76.8 Other specified abnormal immunological findings in serum
CPT/HCPCS: 93970

== ENCOUNTER 2025-04-29 16:37 | Emergency (ER) | payer MEDICAID, SELFPAY ==
[2025-04-29 16:38] VITALS: BP 122/73; PULSE 83; RESP 14; TEMP 36.8; O2SAT 99; BMI 20.4
--- NOTE | 2025-04-29 17:28 | CT_ITS ---
PROCEDURE: CTA CHEST W/WO CONTRAST 04/29/2025 REASON FOR EXAM: CHEST PAIN, SOB, RECENT DVT DX TECHNIQUE: Procedure Code: [id number] Modality: CT Procedure: CTA CHEST W/WO CONTRAST Multiplanar Sagittal and Coronal images were obtained. CONTRAST: 100 mL of Isovue 370 One or more dose reduction techniques were used (e.g., Automated exposure control, adjustment of the mA and/or kV according to patient size, use of iterative reconstruction technique). RADIATION DOSE SUMMARY: DLP: 2396 mGycm COMPARISON: None FINDINGS: PULMONARY ARTERIES: Possible filling defect within the left anterior subsegmental branch best seen on series 3, image 202. LUNGS AND PLEURA: No focal consolidations. No definite pulmonary edema. No mass or nodule. No pleural effusion. No pneumothorax. MEDIASTINUM: No lymphadenopathy or mass. The heart shows no acute findings. The aorta shows no acute findings. The pulmonary trunk, and branches of the vessels in the mediastinum are within normal limits. SUPRACLAVICULAR AND AXILLARY: No abnormalities seen in these regions. No mass or significant lymphadenopathy. UPPER ABDOMEN: The visualized upper abdomen is unremarkable. BONES AND SOFT TISSUES: The ribs are unremarkable. The visualized spine shows no significant acute findings. No focal bony mass lesions noted. The subcutaneous soft tissues are unremarkable. CT/CTA Chest W/WO Contrast IMPRESSION: Possible filling defect within the left anterior subsegmental branch as above w hich may reflect pulmonary emboli. No right heart strain. No pulmonary artery dilatation. No focal consolidations. Reading Location: -[id number]
--- NOTE | 2025-04-29 17:28 | CT_ITS ---
PROCEDURE: CTA NECK W/WO CONTRAST 04/29/2025 REASON FOR EXAM: NECK PIAN, RECENT HX OF BLOOD CLOTS TECHNIQUE: Procedure Code: CTCTANEWW Modality: CT Procedure: CTA NECK W/WO CONTRAST Multiplanar Sagittal and Coronal images were obtained. CONTRAST: 100 mL of Isovue 370 One or more dose reduction techniques were used (e.g., Automated exposure control, adjustment of the mA and/or kV according to patient size, use of iterative reconstruction technique). RADIATION DOSE SUMMARY: DLP: 2396 mGycm COMPARISON: none FINDINGS: The aortic arch demonstrates a type I configuration. The ostia of the great vessels are patent. There is conventional branching. The right CCA is patent. There is no significant stenosis of the right carotid bifurcation by NASCET criteria. The cervical right ICA is patent. Visualized portions of the right MCA and right MARY appear patent. There is no large vessel occlusion. The left CCA is patent. There is no significant stenoses at the left carotid bifurcation by NASCET criteria. The cervical left ICA is patent. Visualized portions of the left MCA and left MARY appear patent. There is no large vessel occlusion. The right vertebral artery arises from the right subclavian artery. The left vertebral artery arises from the left subclavian artery. Both vertebral arteries are patent. Both vertebral arteries join to form the patent basilar artery. Both posterior cerebral arteries arise from the tip of the basilar. Visualized portions of the proximal [employer] segments are patent. There is no large vessel occlusion. There is no enhancing intracranial mass. Shotty cervical lymph nodes are identified. The thyroid gland is heterogeneous. The lung apices demonstrate no pneumothorax. No destructive osseous abnormalities identified. CT/CTA Neck W/WO Contrast IMPRESSION: No acute large vessel occlusion or high-grade stenosis within the neck. Reading Location: [id number]
[2025-04-29] MEDS: 0.9% Normal Saline (1000mL) 1,000 ML 999 ML IV (17:59)
[2025-04-29 18:23] LABS: Hematocrit 45.8 % (40-54); Hemoglobin 15.8 g/dL (13.0-16.5); Immature Granulocytes Count 0.070 X10^3/uL (0.0-0.0); Mean Corp Hgb Conc 34.5 g/dL (32-36); Mean Corpuscular Volume 92.5 fL (80-94); Mean Platelet Vol. 10.4 fl (6.2-12.0); NRBC Flagged by Analyzer 0 % (0-5); Platelet Count 252 K/mm3 (150-450); RBC Distribution Width CV 12.5 % (11.6-14.6); RBC Distribution Width SD 42.4 fl (35.1-43.9); Red Blood Count 4.95 M/mm3 (4.6-6.2); White Blood Count 14.7 K/mm3 (4.4-11.0)
[2025-04-29 18:44] LABS: Prothrombin Time (Protime)PT. 14.6 SECONDS (11.7-14.9)
[2025-04-29 18:45] LABS: Partial Thromboplast Time 36.7 Seconds (24.1-36.2)
[2025-04-29 18:51] LABS: Anion Gap 11 (5-15); BUN 21 mg/dL (4-19); BUN/Creat Ratio 25.3 RATIO (10-20); Calcium,Total 9.8 mg/dL (7.6-11.0); Carbon Dioxide 27.3 mmol/L (21.0-32.0); Chloride 99 mmol/L (98-108); Estimated Creatinine Clearance 118.02 ml/min (50-250); Glucose 99 mg/dL (70-99); Potassium 4.3 mmol/L (3.3-5.1); Pro- Brain NATRIURETIC PEPTIDE 72 pg/mL (<=450); Troponin T High Sensitivity < 6 ng/L (<=22)
--- NOTE | 2025-04-29 19:41 | EX.ED.DYSGE1 ---
HPI History of Present Illness Chief Complaint: Other, Pain/Inj Narrative Narrative: Patient is a 32-year-old male with a recent diagnosis of DVT who presents to the emergency department with a chief complaint of chest pain, shortness of breath and neck pain. Patient states that he was on Xarelto and his clinical services professional oncologist took him off this medication and placed him on warfarin. He states that he is on 5 mg of warfarin. He states that has been taking this as prescribed. Patient states that his neck has been bothering him for about a week and he feels that he may have pinched nerve denies any trauma or inciting events. [facility] Medical History Deep vein thrombosis (DVT) Home Medications ?Medication ?Instructions ?Recorded ?Last Taken ?Type warfarin 5 mg tablet 5 mg PO QDAY #7 tabs 04/25/25 04/29/25 Rx cyclobenzaprine 10 mg tablet 10 mg PO TID PRN muscle spasm #14 04/29/25 Unknown Rx tabs enoxaparin 80 mg/0.8 mL 70 mg (0.7 mL) subcut Q12H 7 days 04/29/25 Unknown Rx subcutaneous syringe #9.8 mL Allergy/AdvReac Type Severity Reaction Status Date / Time No Known Allergies Allergy Verified 04/29/25 16:40 Family History Other No pertinent family history Surgical History History of mandibular surgery Social History household members: other details: sister current occupational status: employed 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[employer], 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 pets and animals: Yes (1) pets and animals: dog(s) history of recent travel: No sexually active: Yes Smoking Status: Former smoker Electronic Cigarette Use: not used how long ago did patient quit smokin months quit status: considering quitting alcohol intake: current alcohol intake frequency: a few times a week Alcohol type: beer substance use type: marijuana caffeine: Yes (1-2) Type: coffee frequency: 1-2 times per week seatbelt use: always do you feel safe at home: Yes ROS ROS ED ROS Narrative Constitutional: Denies headache, lightness, dizziness Eyes: Denies double vision Neck: Complains of neck pain as noted above Cardiovascular: Complains of chest pain denies palpitations Respiratory: Complains of shortness of breath Abdomen: Denies abdominal pain nausea vomit diarrhea Neurological: Denies any numbness, weeks, tingling Musculoskeletal: Complains of neck pain as noted above Skin: Denies any rashes or lesions EXAM Physical Exam Narrative Exam Narrative: General: Patient is lying in bed rest comfortably did not appear to be in acute distress Head: Atraumatic, normocephalic Eyes: PERRL bilaterally, EOMI bilateral, no conjunctival injection noted Neck: Soft, supple, trachea midline patient is full range of motion of his neck no concern for meningitis Cardiovascular: Regular rate and rhythm Respiratory: Clear to auscultation bilaterally Abdomen: Soft, nondistended, nontender to palpation Extremities: +5/5 strength noted in the bilateral upper and lower extremities, radial pulse +2/4 in the bilateral EXTR, no pedal edema exam Neurological: Patient following commands knew that he was at [facility] year is 2024 Skin: Warm, dry, intact no rashes or lesions noted Const Vital Signs: 04/29/25 16:38 04/29/25 16:38 04/29/25 17:29 Temperature 98.3 F Temperature Source Oral Pulse Rate 83 Respiratory Rate 14 Respiratory Effort Normal Respiratory Pattern Normal Blood Pressure 122/73 H Blood Pressure Mean 89 Pulse Ox 99 Oxygen Delivery Method Room Air Room Air 04/29/25 20:00 Temperature 98.3 F Temperature Source Pulse Rate 71 Respiratory Rate 18 Respiratory Effort Respiratory Pattern Blood Pressure 116/93 H Blood Pressure Mean 100 Pulse Ox 100 Oxygen Delivery Method MDM MDM MDM Narrative Medical decision making narrative: Patient is a 40-year-old male who presented to the emergency department the chief complaint of neck pain, chest pain, shortness of breath. On the differential diagnosis includes but not limited to jugular venous thrombosis, PE, ACS, pneumonia. Once workup is obtained reviewed he will be reevaluated. patient is a CBC reviewed which showed leukocytosis of 14,000, hemoglobin 15.8, plate count of 252. Patient's INR normal 1.1 despite being on warfarin, sodium was 137, potassium of 4.3, creatinine normal at 0.82. Patient's troponin was less than 6, delta troponin pending EKG reviewed which showed sinus rhythm with a rate of 81 bpm., proBNP of 72. Patient CT of the chest showed possible filling defect within the left anterior subsegmental branch reflecting pulmonary emboli. Patient CTA head and neck showed no acute large vessel occlusion or high-grade stenosis within the neck. Discussed case with hospitalist for admission given the fact that he is subtherapeutic on his warfarin and has a pulmonary embolism now. After discussion he called his clinical services professional oncologist and we will place the patient on Lovenox 70 mg twice a day and increase his warfarin dose to 10 mg until he follows up with his clinical services professional oncologist Dr. Toth on at that point time when she will have an INR checked. Discussed this plan with the patient he is agreeable to this plan he would like to go home he is advised to return with worsening symptoms or other concerns. He is agreeable all course concerns answered. Lab Data Labs: Laboratory Results - last 24 hr 04/29/25 18:00 WBC 14.7 H RBC 4.95 Hgb 15.8 Hct 45.8 MCV 92.5 MCH 31.9 MCHC 34.5 RDW Std Deviation 42.4 RDW Coeff of Antwon 12.5 Plt Count 252 MPV 10.4 Immature Gran % (Auto) 0.500 Neut % (Auto) 82.2 H Lymph % (Auto) 10.5 L Mclennan % (Auto) 5.5 Eos % (Auto) 0.6 Baso % (Auto) 0.7 Absolute Neuts (auto) 12.1 H Absolute Lymphs (auto) 1.55 Nucleated RBC % 0 PT 14.6 INR 1.1 APTT 36.7 H Sodium 137 Potassium 4.3 Chloride 99 Carbon Dioxide 27.3 Anion Gap 11 BUN 21 H Creatinine 0.82 Estim Creat Clear Calc 118.02 Est GFR (MDRD) Non-Af 115 BUN/Creatinine Ratio 25.3 H Glucose 99 Calcium 9.8 Troponin T High Sens < 6 NT pro BNP II 72 Radiography Diagnostic Testing: Clinical Impression(s) from Imaging Studies Chest CTA 04/29/25 17:28 IMPRESSION: Possible filling defect within the left anterior subsegmental branch as above which may reflect pulmonary emboli. No right heart strain. No pulmonary artery dilatation. No focal consolidations. Reading [id number] Ne[facility] CTA 04/29/25 17:28 IMPRESSION: No acute large vessel occlusion or high-grade stenosis within the neck. Reading Location: [id number] Discharge Plan Triage Chief Complaint: Other, Pain/Inj ED Provider: Nikos Strickland Dx/Rx/DC Orders Clinical Impression: Deep vein thrombosis (DVT), Pulmonary embolism, Musculoskeletal strain, Neck pain Prescriptions: New enoxaparin 80 mg/0.8 mL syringe 70 mg subcut Q12H 7 Days Qty: 9.8 0RF cyclobenzaprine 10 mg tablet 10 mg PO TID PRN (Reason: muscle spasm) Qty: 14 0RF No Action warfarin 5 mg tablet 5 mg PO QDAY Qty: 7 0RF Primary Care Provider: Kimberlee Butler Referrals: Kimberlee Butler MD [Primary Care Provider] - Activity Restrictions/Additional Instructions: Follow-up with your clinical services professional oncologist at your scheduled appointment on . Use the Lovenox twice daily as prescribed. Increase your warfarin dose to [address] of your chest did not show evidence of a blood clot in your lungs. Return with worsening symptoms or any concerns. Print Language: Bulgarian Disposition Disposition: Home, Self Care
[2025-04-29 20:00] VITALS: BP 116/93; PULSE 71; RESP 18; TEMP 36.8; O2SAT 100
[2025-04-29 20:32] LABS: Troponin T High Sens 2 HR < 6 ng/L (<=22)
== END 2025-04-29 20:32 | disposition home or self-care (01) ==
PROVIDERS: Emergency Provider Emergency Medicine; PCP Internal Medicine; Visit Provider Emergency Medicine
DX: I26.99 Other pulmonary embolism without acute cor pulmonale (principal); I82.409 Acute embolism and thrombosis of unspecified deep veins of unspecified lower extremity; S16.1XXA Strain of muscle, fascia and tendon at neck level, initial encounter; X58.XXXA Exposure to other specified factors, initial encounter; R06.02 Shortness of breath; Z79.01 Long term (current) use of anticoagulants; Z87.891 Personal history of nicotine dependence
CPT/HCPCS: 70498; 71275; 80048; 83880; 84484; 85025; 85610; 85730; 93005; 96360; 96372; 99284; Q9967

== ENCOUNTER 2025-05-02 17:01 | Outpatient (CLI) | payer MEDICAID, SELFPAY ==
[2025-05-02 17:29] LABS: Prothrombin Time (Protime)PT. 19.9 SECONDS (11.7-14.9)
== END 2025-05-02 23:59 | disposition home or self-care (01) ==
LOC: LAB 17:02
PROVIDERS: PCP Internal Medicine; Referring Provider Internal Medicine Medical Oncology; Visit Provider Internal Medicine Medical Oncology
DX: Z79.01 Long term (current) use of anticoagulants (principal)
CPT/HCPCS: 36415; 85610